=== PATIENT | male | born 1965 | race Caucasian/White ===

== ENCOUNTER → 2017-02-03 11:35 | Outpatient (CLI) | payer SELFPAY | END | disposition home or self-care (01) | LOC: D.CT 11:35 | DX: R60.0 Localized edema (principal); M79.604 Pain in right leg ==

== ENCOUNTER 2018-01-20 15:59 | Inpatient (IN) | payer OTHER ==
[~2018-01-20] VITALS: Ht 180.3 cm; Wt 66.5 kg
[2018-01-20] MEDS ORDERED: LEVOTHYROXINE137 MCG PO (17:20)
[2018-01-20] MEDS ORDERED: VIBRAMYCIN 100100 MG PO (17:21)
[2018-01-20] MEDS ORDERED: ZANTAC150 MG PO (17:21)
[2018-01-20] MEDS ORDERED: TERAZOSIN HCL2 MG PO (17:22)
[2018-01-20] MEDS ORDERED: PLAVIX75 MG PO (17:22)
[2018-01-20 17:45] VITALS: BP 123/95; Ht 180.3 cm; Wt 66.5 kg
[2018-01-20 18:35] LABS: BASOPHILS 0.4 % (0-2); EOSINOPHILS 4.9 % (0-7); HEMATOCRIT 40.3 % (42.0-54.0); HEMOGLOBIN 14.3 g/dL (13.5-17.5); IMMATURE GRANULOCYTES 0.2 % (0-5); LYMPHOCYTES 22.7 % (15-50); MCH 29.7 pg (26.0-34.0); MCHC 35.5 g/dL (31.0-37.0); MCV 83.6 fL (80.0-100.0); MEAN PLATELET VOLUME 9.4 fL (7.4-10.4); MONOCYTES 14.9 % (2-11); NEUTROPHILS 56.9 % (40-80); PLATELET COUNT 143 10x3/uL (130-400); RBC 4.82 10x6/uL (4.20-6.10); RDW 13.1 % (11.5-14.5); WBC 5.3 10x3/uL (4.8-10.8)
[2018-01-20 18:49] LABS: ALBUMIN 3.4 g/dL (3.4-5.0); ANION GAP 13.5 mmol/L (8-16); BILIRUBIN - TOTAL 0.53 mg/dL (0.2-1.3); CALCIUM 8.4 mg/dL (8.5-10.1); CARBON DIOXIDE 25.2 mmol/L (21.0-32.0); CREATININE - SERUM 1.9 mg/dL (0.6-1.3); POTASSIUM - SERUM 3.7 mmol/L (3.5-5.1); PROTEIN - SERUM 7.1 g/dL (6.4-8.2)
[2018-01-20 19:54] VITALS: BP 137/85
[2018-01-21 01:30] VITALS: BP 145/90
[2018-01-21 04:40] VITALS: BP 149/97
[2018-01-21 07:54] VITALS: BP 136/91
[2018-01-21 11:53] VITALS: BP 161/101
[2018-01-21 20:20] VITALS: BP 148/97
[2018-01-22 00:41] VITALS: BP 155/94
[2018-01-22 05:57] VITALS: BP 138/88
[2018-01-22 06:45] LABS: BASOPHILS 0.4 % (0-2); EOSINOPHILS 6.2 % (0-7); HEMOGLOBIN 14.3 g/dL (13.5-17.5); LYMPHOCYTES 21.5 % (15-50); MCH 29.4 pg (26.0-34.0); MCHC 34.9 g/dL (31.0-37.0); MCV 84.2 fL (80.0-100.0); MEAN PLATELET VOLUME 9.8 fL (7.4-10.4); MONOCYTES 10.4 % (2-11); NEUTROPHILS 61.5 % (40-80); PLATELET COUNT 155 10x3/uL (130-400); RBC 4.87 10x6/uL (4.20-6.10); WBC 4.5 10x3/uL (4.8-10.8)
[2018-01-22 06:55] LABS: ANION GAP 13.1 mmol/L (8-16); CALCIUM 8.3 mg/dL (8.5-10.1); CARBON DIOXIDE 25.7 mmol/L (21.0-32.0); CREATININE - SERUM 1.9 mg/dL (0.6-1.3); POTASSIUM - SERUM 3.8 mmol/L (3.5-5.1)
[2018-01-22 08:11] VITALS: BP 148/100
[2018-01-22 11:22] VITALS: BP 178/112
[2018-01-22 15:29] VITALS: BP 146/96
[2018-01-22 21:35] VITALS: BP 142/95
[2018-01-23 00:46] VITALS: BP 161/99
[2018-01-23 05:39] VITALS: BP 150/93
[2018-01-23 06:16] LABS: BASOPHILS 0.4 % (0-2); EOSINOPHILS 5.6 % (0-7); HEMATOCRIT 43.5 % (42.0-54.0); HEMOGLOBIN 15.4 g/dL (13.5-17.5); IMMATURE GRANULOCYTES 0.4 % (0-5); LYMPHOCYTES 25.5 % (15-50); MCH 29.7 pg (26.0-34.0); MCHC 35.4 g/dL (31.0-37.0); MEAN PLATELET VOLUME 9.6 fL (7.4-10.4); MONOCYTES 6.5 % (2-11); NEUTROPHILS 61.6 % (40-80); PLATELET COUNT 183 10x3/uL (130-400); RBC 5.18 10x6/uL (4.20-6.10); WBC 4.6 10x3/uL (4.8-10.8)
[2018-01-23 06:38] LABS: ALBUMIN 3.6 g/dL (3.4-5.0); ANION GAP 13.9 mmol/L (8-16); BILIRUBIN - TOTAL 0.42 mg/dL (0.2-1.3); CALCIUM 8.8 mg/dL (8.5-10.1); CARBON DIOXIDE 25.1 mmol/L (21.0-32.0); CREATININE - SERUM 1.9 mg/dL (0.6-1.3); PROTEIN - SERUM 7.3 g/dL (6.4-8.2)
[2018-01-23 08:51] VITALS: BP 154/99
[2018-01-23 12:13] VITALS: BP 144/93
[2018-01-23] MEDS ORDERED: KEFLEX500 MG PO (14:06)
== END 2018-01-23 16:06 | disposition home or self-care (01) | DRG 603 ==
LOC: D.M2 15:59
PROVIDERS: Emergency Medicine; Family Medicine; Student in an Organized Health Care Education/Training Program
DX: L03.115 Cellulitis of right lower limb (principal); B35.3 Tinea pedis; I25.10 Atherosclerotic heart disease of native coronary artery without angina pectoris; Z87.891 Personal history of nicotine dependence; Z95.1 Presence of aortocoronary bypass graft

== ENCOUNTER 2018-03-01 15:41 | Outpatient (CLI) | payer OTHER ==
[~2018-03-01] VITALS: Ht 180.3 cm; Wt 117.7 kg
--- NOTE | ~2018-03-01 | HP ---
PATIENT: LORNA RECINOS MEDICAL RECORD: [id number] ACCOUNT: [id number] LOCATION:[facility] : 65 ADMISSION DATE: 03/01/18 HISTORY AND PHYSICAL EXAMINATION DIAGNOSES: 1. Unstable angina. 2. Coronary artery disease. 3. Previous myocardial infarction. 4. Hyperlipidemia. 5. Hypertension. HISTORY OF PRESENT ILLNESS: Mr. Recinos has a past history of coronary artery disease, He had myocardial infarctions in the past. He has been treated with [facility]I, he is not sure if he has cardiac stent or not, he is on Plavix. He had 3 episodes of severe chest pain today, just like that of his previous myocardial infarction and previous angina. His EKG is with no changes. He continues to have the episodes of chest pain. PHYSICAL EXAMINATION: GENERAL APPEARANCE: Well-nourished, well-developed, appears stated age. Level of distress, comfortable. PSYCHIATRIC: Mental status, alert, normal affect. Orientation, oriented to time, place and person. EYES: Lids and conjunctiva, noninjected. No discharge, no pallor. ENT: Lips, teeth, gums, normal dentition. Oropharynx, no cyanosis, no pallor. NECK: Carotid arteries, bilateral normal upstroke, no bruits, no thrills. JUGULAR VEINS: No jugular venous pressure or distention. CERVICAL LYMPH NODES: Nontender, nonenlarged. THYROID: Not enlarged. Nontender. No nodules. LUNGS: Respiratory effort, unlabored. CHEST: Normal curvature. No thoracic deformity. No chest wall tenderness. Percussion, resonant. Auscultation, clear. No wheezes, no rales, no rhonchi. CARDIOVASCULAR: Precordial exam, nondisplaced. No heaves or pericardial thrills. Rate and rhythm, regular. Heart sounds, normal S1, normal S2. No S3, no gallop, no rub. Systolic murmur, not heard. Diastolic murmur, not heard. EXTREMITIES: No cyanosis, no edema. Peripheral pulses, full and equal in all extremities, except as noted. No bruits appreciated. ABDOMEN: Soft, nondistended. Normal aorta. No bruit. Nontender. No masses. Liver, nontender, no hepatomegaly. Spleen, nontender, no splenomegaly. MUSCULOSKELETAL: No joint tenderness. No joint swelling. No erythema. NEUROLOGICAL: Normal gait, normal strength, normal tone. SKIN: Warm and dry. OVERALL IMPRESSION: Chest pain compatible with angina in a gentleman with a past history of myocardial infarctions, most likely he has recurrent hemodynamically significant coronary artery disease. We will proceed with coronary angiography. Further care depends upon the findings of the angiography. TRANSINT:[id number] Voice Confirmation ID: [id number] DOCUMENT ID: [id number] HISTORY AND PHYSICAL [id number] CESSORLORNA, JENNIFER CHANEY at 1207 CC: [id number] DICTATION DATE: 03/01/18 171 HORSE RANCHER: 03/01/18 1737 DEP CLI 03/02/18 [place] [address] [place] [address]
--- NOTE | ~2018-03-01 | OP ---
PATIENT NAME: LORNA HOLMAN MEDICAL RECORD: [id number] :65 LOCATION:D.CAT ADMISSION DATE: SURGEON: JENNIFER VICK MD DATE OF OPERATION: 03/02/2018 PROCEDURES: 1. PTCA stent vein graft to RCA. 2. Left heart catheterization. 3. Selective coronary angiography. 4. Vein graft angiography. 5. BUENO angiography. INDICATION: Unstable angina and coronary artery disease. DESCRIPTION OF PROCEDURE: After informed consent was obtained and after detailed explanation of risks, benefits as well as alternative therapies, the patient elected to proceed with angiogram and angioplasty. The right femoral area was prepped and draped in normal sterile fashion. Right femoral artery was cannulated via modified Seldinger technique with placement of 6-German sheath. All catheters exchanged through this sheath. FINDINGS: Left ventriculogram was performed in standard 30-degree GUNTER view, reveals global hypokinesis throughout all segments. Overall ejection fraction 35%. SELECTIVE CORONARY ANGIOGRAPHY: 1. Left main is with no significant angiographic disease. 2. Left anterior descending is closed. 3. Left circumflex is closed. 4. Right coronary artery is closed. 5. BUENO to the LAD is patent. It is quite tortuous and elongated. The LAD does have an 80+ percent stenosis after the BUENO. 6. Vein graft to a LAD diagonal is patent. The diagonal is small, diffusely diseased. 7. Vein graft to the left circumflex is patent. The circumflex has 2 branches after the distal anastomosis. There is at least 80% to 90% stenosis of one of these branches. 8. Vein graft to the right coronary artery is patent. There is an area of 70% to 80% stenosis throughout the entire proximal vein graft. PTCA STENT OF THE VEIN GRAFT TO THE RCA: The stent used was a 4.0 x 38 mm Aleksandar. Result was 0% residual stenosis. OVERALL IMPRESSION: Successful percutaneous transluminal coronary angioplasty stent of the vein graft to the right coronary artery going from 70% to 80% initial stenosis to 0% residual. PLAN: For PTCA stent of the circumflex and/or LAD if he continues to have episodes of chest pain. TRANSINT:[id number] Voice Confirmation ID: [id number] DOCUMENT ID: [id number] OPERATIVE REPORT [id number] LORNA HOLMAN JENNIFER VICK MD at 1207 CC: [id number] DICTATION DATE: 03/02/18 1616 PARKING WORKER: 03/02/18 1637 DEP CLI 03/02/18 [place] [id number] [facility] [place] [address]
--- NOTE | ~2018-03-01 | HEMODYNAMI ---
PATIENT:LORNA HOLMAN MEDICAL RECORD: [id number] : 65 LOCATION:[address] [id number] ADMISSION DATE: 03/01/18 Generatedon:03/02/201816:11 Patient name: LORNA HOLMAN Patient #: [id number] SSN: : 1965 Date of study: 03/02/2018 Page: Of Hemodynamic Procedure Report Patient Data Patient Demographics Procedure consent was obtained First Name: LORNA Gender: Male Last Name: RIVER : 1965 Middle Initial: MEAGAN Age: 53 year(s) Patient #: [id number] Race: Unknown Additional ID: [id number] Contact details [address]: [address] [place] [address] State: [place] City: [place] Zip code: [address] Past Medical History Allergies: No known allergies Admission Admission Data Admission Date: 03/01/2018 Admission Time: 21:11 Admit Source: Other Room #: [facility] Lab Results Lab Result Date: 03/01/2018 Lab Result Time: 16:15 Biochemistry Name Units Result Min Max BUN mg/dl 17 --(---*)-- 7 18 Creatinine mg/dl 2 --(----)-* 0.6 1.3 CBC Name Units Result Min Max Hematocrit % 40.5 -*(----)-- 42 54 Hemoglobin g/dl 14.2 --(*---)-- 13.5 17.5 Procedure Procedure Types Cath Procedure Diagnostic Procedure LHC LH w/Coronaries Sedation Charges Moderate Sedation up to 15 minutes PCI Procedure Coronary Stent Coronary Stent Initial Procedure Description Procedure Date Procedure Date: 03/02/2018 Procedure Start Time: 15:50 Procedure End Time: 16:11 Procedure Staff Name Function Cristofer Melendez MD Performing Physician July Quezada RT Monitor Carrillo James RT Scrub Juan Hernandez RN Nurse Procedure Data Cath Procedure Fluoroscopy Diagnostic fluoroscopy Total fluoroscopy Time: 5.8 time: 5.8 min min Diagnostic fluoroscopy Total fluoroscopy dose: dose: 1240 mGy 1240 mGy Contrast Material Contrast Material Type Amount (ml) Isovue 370 145 Entry Location Entry Primary Successful Side Size Upsize Upsize Entry Closure Succes sful Closure Location (Fr) 1 (Fr) 2 (Fr) Remarks Device Remarks Femoral Right 5 Fr 6 Fr Exoseal artery Short Estimated blood loss: 10 ml Diagnostic catheters Device Type Used For End Catheter Placement MULTIPACK Pigtail 5 Fr LV Angiography catheter MULTIPACK JL 4.0 5Fr Left Coronary catheter Angiography MULTIPACK 3DRC 5Fr Internal mammary catheter arteriography MULTIPACK 3DRC 5Fr Right Coronary catheter Angiography DIAGNOSTIC AR 2 MOD 5 Fr SVG Angiography catheter ([id number]) DIAGNOSTIC AR 2 MOD 5 Fr SVG Angiography catheter ([id number]) DIAGNOSTIC AR 2 MOD 5 Fr SVG Angiography catheter ([id number]) Procedure Complications No complications Procedure Medications Medication Administration Route Dosage 0.9% NaCl I.V. 100 ml/hr Oxygen etCO2 Nasal cannula 2 l/min Heparin Flush Bag added to field 2 bags (1000units/500ml NS) Lidocaine 2% added to field 20 Versed I.V. 2 mg Fentanyl I.V. 100 mcg Versed I.V. 1 mg Versed I.V. 1 mg Heparin Bolus I.V. 4000 units Cardene I.C. 300 mcg Fentanyl I.V. 100 mcg Hemodynamics Rest HGB: 14.2 (g/dl) Heart Rate: 70 (bpm) Snapshots Pre Cath Intra NCS Post Cath Vital Signs Time Heart Resp SPO2 etCO2 NIBP (mmHg) Rhythm Pain Sedation Rate (ipm) (%) (mmHg) Status Level (bpm) 15:38:01 67 14 97 0 176/112(150) NSR 0 (11) 10(A) , No pain 15:42:54 68 14 88 0 165/111(137) NSR 0 (11) 10(A) , No pain 15:47:43 67 12 95 12.7 171/108(145) NSR 0 (11) 10(A) , No pain 15:52:32 68 12 94 35.1 161/108(128) NSR 0 (11) 10(A) , No pain 15:57:21 68 11 95 27.6 168/101(130) NSR 0 (11) 9(A) , No pain 16:02:11 69 15 96 33.6 164/106(139) NSR 0 (11) 9(A) , No pain 16:07:04 76 12 96 30.6 152/100(123) NSR 0 (11) 10(A) , No pain Medications Time Medication Route Dose Verified Delivered Reason Notes Effectiveness by by 15:44:14 0.9% NaCl I.V. 100 Juan Juan Per physician ml/hr David Hernandez RN RN 15:44:24 Oxygen etCO2 2 Juan Juan Per physician Nasal l/min David Hernandez cannula RN RN 15:44:35 Heparin Flush added 2 Juan Juan used for Bag to bags Lorkatheryn Hernandez procedure (1000units/500ml field RN RN NS) 15:44:46 Lidocaine 2% added 20ml Juan Juan for local to vial Lorkatheryn Hernandez anesthetic field RN RN 15:44:58 Versed I.V. 2 mg Juan Juan for sedation David Hernandez RN RN 15:45:07 Fentanyl I.V. 100 Juan Juan for sedation mcg David Hernandez RN RN 15:48:06 Versed I.V. 1 mg Juan Juan for sedation David Hernandez RN RN 15:52:04 Versed I.V. 1 mg Juan Juan for sedation David Hernandez RN RN 16:01:45 Heparin Bolus I.V. 4000 Juan Juan for units Lorigan aDvid anticoagulation RN RN 16:02:04 Cardene I.C. 300 Juan Cristofer for mcg David florian RN 16:09:27 Fentanyl I.V. 100 Juan Cristofer for sedation connie Melendez MD, RN Procedure Log Time Note 14:56:37 Informed consent obtained and on chart 14:57:11 Lab Result : Hemoglobin 14.2 g/dl 14:57:11 Lab Result : Creatinine 2 mg/dl 14:57:11 Lab Result : BUN 17 mg/dl 14:57:11 Lab Result : Hematocrit 40.5 % 14:57:15 Admit Source: Other 14:57:31 Diagnostic Cath status Elective 14:57:32 Time tracking: Regular hours (M-F 7:00 - 5:00) 14:57:36 Plan of Care:Hemodynamics will remain stable., Cardiac rhythm will remain stable., Comfort level will be maintained., Respiratory function will remain adequate., Patient/ family verbilizes understanding of procedure., Procedure tolerated without complication., Recovers from procedure without complications.. 14:57:44 H&P Date Dictated: 03/01/2018 Within 30 days and on chart., H&P Addendum completed by physician on day of procedure. (MUST COMPLETE FOR ALL OUTPATIENTS). 15:23:13 July Counts RT(R) sent for patient. Start room use. 15:30:00 Patient received from Med II to CCL 1 Alert and oriented. Tansferred to table in Supine position. 15:30:01 Warm blankets applied, and tyron hugger turned on for patient comfort. 15:30:02 Correct patient and procedure confirmed by team. 15:30:02 ECG and BP/O2 sat monitors applied to patient. 15:30:04 Pre-procedure instructions explained to patient. 15:30:04 Pre-op teaching completed and patient verbalized understanding. 15:30:07 Family in patients room. 15:30:08 Patient NPO since Midnight. 15:30:15 Patient allergic to No known allergies 15:36:59 Vital chart was started 15:37:02 Rhythm: sinus rhythm 15:37:03 Full Disclosure recording started 15:37:06 Is the patient allergic to Iodine/contrast media? No. 15:37:07 Is patient on blood thinner?Yes 15:37:09 ACC The patient was administered the following blood thiners within the last 24 hours: ACCPlavix 15:37:12 Patient diabetic? No. 15:37:17 Previous problem with sedation/anesthesia? No ? 15:37:18 Snore? Yes 15:37:19 Sleep apnea? Yes 15:37:20 Deviated septum? No 15:37:21 Opens mouth fully? Yes 15:37:21 Sticks out tongue? Yes 15:37:27 Airway obstruction? No ? 15:37:28 Dentures? No ? 15:37:31 Pre procedure: right dorsailis pedis pulse 2+ Normal; easily identifiable; not easily obliterated 15:37:32 Patient pain scale 0/10 ?. 15:37:39 IV patent on arrival in right antecubital with 0.9% NaCl at O. 15:37:42 Lab results completed and on chart. 15:37:45 Right groin area was prepped with chlora-prep and draped in sterile fashion 15:37:46 Alarms reviewed by R. N. 15:37:46 Sharps counted by scrub and verified by R.N. 15:41:42 Baseline sample Acquired. 15:43:43 Final Timeout: patient, procedure, and site verified with staff and physician. All members of the team are in agreement. 15:43:45 Right groin site verified by team. 15:43:47 Physical assessment completed. ASA score P 2 - A patient with mild systemic disease as per Cristofer Melendez MD. 15:43:49 Sedation plan: IV Moderate Sedation Medication:Versed, Fentanyl 15:44:14 0.9% NaCl 100 ml/hr I.V. was administered by Juan Hernandez RN; Per physician; 15:44:24 Oxygen 2 l/min etCO2 Nasal cannula was administered by Juan Hernandez RN; Per physician; 15:44:35 Heparin Flush Bag (1000units/500ml NS) 2 bags added to field was administered by Juan Hernandez RN; used for procedure; 15:44:46 Lidocaine 2% 20ml vial added to field was administered by Juan Hernandez RN; for local anesthetic; 15:44:58 Versed 2 mg I.V. was administered by Juan Hernandez RN; for sedation; 15:45:07 Fentanyl 100 mcg I.V. was administered by Juan Hernandez RN; for sedation; 15:47:38 Zero performed for pressure channel P1 15:48:06 Versed 1 mg I.V. was administered by Juan Hernandez RN; for sedation; 15:50:40 Use device set Femoral Dx 15:50:41 ACIST Syringe (28182) opened to sterile field. 15:50:42 Bag Decanter () opened to sterile field. 15:50:43 Medline Cath Pack ([id number]) opened to sterile field. 15:50:44 DIAGNOSTIC WIRE .035 260cm J wire (135280) opened to sterile field. 15:50:46 ACIST Hand Control (55340) opened to sterile field. 15:50:47 ACIST Manifold (33188) opened to sterile field. 15:50:47 DIAGNOSTIC Multipack 5Fr catheter set (OF9339) opened to sterile field. 15:50:48 Tegaderm 4 x 4 (1626W) opened to sterile field. 15:50:49 PERCUTANEOUS ENTRY 19GA needle opened to sterile field. 15:50:50 SHEATH Prelude 5Fr 0.035 (KMP-2I-60-035) opened to sterile field. 15:50:53 Procedure started. 15:50:57 Local anesthetic to right femoral artery with Lidocaine 2% by Cristofer Melendez MD.INITIAL ACCESS ONLY 15:51:28 A 5 Fr sheath was inserted into the Right Femoral artery 15:52:04 Versed 1 mg I.V. was administered by Juan Hernandez RN; for sedation; 15:52:20 A MULTIPACK Pigtail 5 Fr catheter was advanced over the wire and used for LV Angiography. 15:52:22 LV gram done using GUNTER 15:52:35 EF : 35 % 15:52:48 Injector settings: Ml/sec: 10, Volume: 20, 15:52:49 Catheter removed. 15:52:55 A MULTIPACK JL 4.0 5Fr catheter was advanced over the wire and used for Left Coronary Angiography. 15:54:20 Catheter removed. 15:54:35 A MULTIPACK 3DRC 5Fr catheter was advanced over the wire and used for Internal mammary arteriography. to LAD 15:56:16 A MULTIPACK 3DRC 5Fr catheter was advanced over the wire and used for Right Coronary Angiography. 15:57:04 A DIAGNOSTIC AR 2 MOD 5 Fr catheter ([id number]) was advanced over the wire and used for SVG Angiography. to Diag 15:57:25 A DIAGNOSTIC AR 2 MOD 5 Fr catheter ([id number]) was advanced over the wire and used for SVG Angiography. to RCA 15:57:31 Catheter removed. 15:57:37 Use device set [facility] PCI 15:57:40 SHEATH Prelude 6Fr 0.035 (TPM-9I-47-035) opened to sterile field. 15:57:43 INFLATOR Merit BasixCompak (UQ0548) opened to sterile field. 15:57:45 CHOICE PT Extra Support 182cm wire ([id number]) opened to sterile field. 15:58:06 GUIDE 6FR AR 2.0 SH catheter ([id number]) opened to sterile field. 15:58:43 A DIAGNOSTIC AR 2 MOD 5 Fr catheter (380753M) was advanced over the wire and used for SVG Angiography. to Circ 15:58:54 Catheter removed. 15:59:28 Sheath upsized to a 6 Fr Short. 16:01:43 6 Fr AR 2.0 SH guide catheter was inserted over the wire 16:01:45 Heparin Bolus 4000 units I.V. was administered by Juan Hernandez RN; for anticoagulation; 16:02:04 Cardene 300 mcg I.C. was administered by Cristofer Melendez MD; for vasodilation; 16:02:04 CHOICE PT ES wire advanced. 16:04:09 Place stent Inflation Number: 1 A KANE Rx 4.0 x 38 stent ([id number]) was prepped and advanced across the Aorta Right -> Dist RCA. The stent was deployed at 13 SUYAPA for 0:08 (min:sec). 16:05:03 Inflation number: 2 The stent balloon was then re-inflated across the Aorta Right -> Dist RCA to 15 SUYAPA for 0:05 (min:sec). 16:05:49 Stent catheter was removed intact over wire. 16:05:50 Wire removed. 16:05:50 Guide catheter removed. 16:06:07 Sheath removed intact; hemostasis achieved with Exoseal to the Right Femoral artery. 16:06:09 Procedure ended.(Physican Out) 16:06:18 Fluoroscopy time 05.80 minutes. 16:06:22 Flurop Dose total: 1240 16:06:22 Fluoroscopy dose: 1240 mGy 16:06:27 Contrast amount:Isovue 370 145ml. 16:06:28 Sharps counted by scrub and verified by R.N. 16:06:31 Insertion/operative site no bleeding no hematoma. 16:06:34 Post-op/insertion site Right Femoral artery dressed using a 4 x 4 and Tegaderm. 16:06:37 Post right femoral artery:stable, clean and dry 16:06:39 Post Procedure Pulses reassessed and unchanged 16:06:41 Post-procedure physical assessment completed. ASA score P 2 - A patient with mild systemic disease as per Cristofer Melendez MD. 16:06:47 Post procedure rhythm: unchanged. 16:06:49 Estimated blood loss: 10 ml 16:07:08 Post procedure instruction explained to patient.Patient verbalizes understanding. 16:07:09 Patient needs reinforcement of post procedure teaching. 16:07:55 Procedure type changed to Cath procedure, Diagnostic procedure, LHC, LHC w/Coronaries, Sedation Charges, Moderate Sedation up to 15 minutes, PCI procedure, Coronary Stent, Coronary Stent Initial 16:08:20 Procedure Complication : No complications 16:08:21 See physician's report for complete and final results. 16:08:46 EXOSEAL 6Fr (EX600) opened to sterile field. 16:09:27 Fentanyl 100 mcg I.V. was administered by Cristofer Melendez MD; for sedation; 16:11:26 Procedure and supply charges have been captured, reviewed, submitted and are correct. 16:11: Vital chart was stopped 16::33 Report given to PCU. 16:11:36 Patient transfered to PCU with Bed. 16::44 Procedure ended. 16::44 Full Disclosure recording stopped 16::46 End room use (Document Last) Intervention Summary Intervention Notes Time ActionType Lesion and Equipment Used Action# Pressure Duration Attributes 16:04:09 Place stent Aorta Right KANE Rx 4.0 x 1 13 00:08 -> Dist RCA 38 stent ([id number]) 16:05:03 Reinflate Aorta Right KANE Rx 4.0 x 2 15 00:05 stent -> Dist RCA 38 stent balloon ([id number]) Device Usage Item Name Manufacture Quantity Catalog Number Hospital Part Current Minimal Lot# / Charge Number Stock Stock Serial# Code ACIST Syringe Acist 1 80628 276828 538772 [id number] 20 (81564) [employer] Bag Decanter Microtek 1 2001S 130019 34713 446109 5 () Medical Inc. Medline Cath Cardinal 1 [id number] 051139 14765 518354 5 Pack Health ([id number]) DIAGNOSTIC WIRE St Renny 1 128258 877152 530855 960154 30 .035 260cm J wire (518190) ACIST Hand Acist 1 47716 898785 731024 981336 5 Control (65158) Medical Systems Inc ACIST Manifold Acist 1 50621 220304 411558 677695 5 (33534) [employer] Inc DIAGNOSTIC Cardinal 1 [id number] 786605 23773 847618 30 Multipack 5Fr Health catheter set ([id number]) Tegaderm 4 x 4 3M 1 1626W 189689 218645 280049 5 (1626W) PERCUTANEOUS Cook Medical 1 R33247 564531 323519 5 ENTRY 19GA needle SHEATH Prelude Merit 1 YGA-0Z-29-035 397719 673769 034110 5 5Fr 0.035 Medical (WZD-1M-53-035) MULTIPACK Cardinal 1 444075 5 Pigtail 5 Fr Health catheter MULTIPACK JL Cardinal 1 315707 5 4.0 5Fr Health catheter MULTIPACK 3DRC Cardinal 1 175020 5 5Fr catheter Health DIAGNOSTIC AR 2 Cardinal 1 [id number] 848823 983599 746446 20 MOD 5 Fr Health catheter ([id number]) SHEATH Prelude Merit 1 GMR-7H-12-35 618840 2260404 430563 5 6Fr 0.035 Medical (SNV-3I-83-035) INFLATOR Merit Merit 1 TE3351 719976 929014 682334 15 [employer] Medical (QS1033) CHOICE PT Extra [place] 1 [id number] 915156 970180 512096 5 Support 182cm Scientific wire (0602448N1) GUIDE 6FR AR Medtronic 1 [id number] 750544 63437 588001 1 2.0 SH catheter ([id number]) KANE Rx 4.0 x Medtronic 1 [id number] 720785 3141937 933846 5 [id number] 38 stent ([id number]) EXOSEAL 6Fr Cardinal 1 EX600 308159 075241 043211 10 (EX600) Health Signature Audit [place] Stage Time Signature Unsigned Intra-Procedure 03/02/2018 July 4:11:55 PM Counts RT(R) Signatures Monitor : July Signature : Counts RT Date : Time : [place] [id number] [facility] [place] [address]
--- NOTE | ~2018-03-01 | DS ---
PATIENT:LORNA HOLMAN :65 MEDICAL RECORD: [id number] DISCHARGE SUMMARY ADMISSION DATE: 03/01/18 DISCHARGE DATE: 03/02/18 DATE OF DISCHARGE: 03/02/2018. DIAGNOSES: 1. Unstable angina. 2. Coronary artery disease. 3. Percutaneous transluminal coronary angioplasty stent vein graft to RCA this admission. HISTORY: This is a gentleman who presents with unstable anginal symptomatology, past history of coronary artery bypass graft surgery, had significant disease of the vein graft to the RCA, underwent successful CERTIFIED HAND THERAPIST stent of this, was discharged home with the addition of aspirin and Plavix to his medical regimen. Follow up with [facility] in 1 month. TRANSINT:[id number] Voice Confirmation ID: [id number] DOCUMENT ID: [id number] JENNIFER VICK MD at 1207 CC: [id number] DICTATION DATE: 03/02/18 161 METROLOGY SPECIALIST: 03/02/18 1622 DEP CLI 03/02/18 [place] [address] [place] [address]
[~2018-03-01 15:41] MED LIST: KEFLEX500 MG PO; LEVOTHYROXINE137 MCG PO; PLAVIX75 MG PO; TERAZOSIN HCL2 MG PO; VIBRAMYCIN 100100 MG PO; ZANTAC150 MG PO
[2018-03-01] MEDS ORDERED: LIPITOR40 MG PO (15:54)
[2018-03-01 16:30] VITALS: BP 160/98
[2018-03-01 16:36] LABS: BASOPHILS 0.4 % (0-2); EOSINOPHILS 6.2 % (0-7); HEMATOCRIT 40.5 % (42.0-54.0); HEMOGLOBIN 14.2 g/dL (13.5-17.5); IMMATURE GRANULOCYTES 0.2 % (0-5); LYMPHOCYTES 25.6 % (15-50); MCH 29.6 pg (26.0-34.0); MCHC 35.1 g/dL (31.0-37.0); MCV 84.4 fL (80.0-100.0); MEAN PLATELET VOLUME 9.8 fL (7.4-10.4); MONOCYTES 9.4 % (2-11); NEUTROPHILS 58.2 % (40-80); RDW 13.4 % (11.5-14.5); WBC 4.8 10x3/uL (4.8-10.8)
[2018-03-01 16:45] VITALS: BP 143/85
[2018-03-01 16:49] LABS: PLATELET COUNT 133 10x3/uL (130-400)
[2018-03-01 16:50] LABS: APTT 25.4 SECONDS (22.8-39.4); INR 1.15 (0.85-1.17); PROTIME 14.2 SECONDS (11.6-15.0)
[2018-03-01 16:51] LABS: D-DIMER-QUANTITATIVE < 0.27 ug/mLFEU (0.20-0.54)
[2018-03-01 16:56] LABS: ALBUMIN 3.9 g/dL (3.4-5.0); ALKALINE PHOSPHATASE 151 U/L (46-116); ALT (SGPT) 47 U/L (10-68); BILIRUBIN - TOTAL 0.59 mg/dL (0.2-1.3); CALC OSMOLALITY 279 mosm/kg (275-300); CALCIUM 8.4 mg/dL (8.5-10.1); CARBON DIOXIDE 25.7 mmol/L (21.0-32.0); CHLORIDE - SERUM 106 mmol/L (98-107); GLUCOSE 87 mg/dL (74-106); POTASSIUM - SERUM 3.4 mmol/L (3.5-5.1); SODIUM 140 mmol/L (136-145); UREA NITROGEN 17 mg/dL (7-18); eGFR NON AFRICAN AMERICAN 37 mL/min (90-120)
[2018-03-01 17:08] LABS: CKMB 2.7 U/L (0.0-3.6); CREATINE KINASE 225 UL (21-232); MAGNESIUM - SERUM 2.2 mg/dL (1.8-2.4); TROPONIN-I 0.046 ng/mL (0.000-0.060)
[2018-03-01 17:15] VITALS: BP 150/94
[2018-03-01 18:15] VITALS: BP 148/89
[2018-03-01 19:30] VITALS: BP 151/95
[2018-03-02] VITALS (7 sets, daily range): BP systolic 136–161; BP diastolic 80–101; Ht 180.3 cm; Wt 117.7 kg
== END 2018-03-02 21:20 | disposition home or self-care (01) ==
LOC: OBSVTIME → D.CATH 15:41 → D.ER 15:41 → D.M2 21:11 → D.ER 21:11 → OBSVTIME 21:13 → D.CATH 03-02 21:20 → D.M2 03-02 21:20
PROVIDERS: Family Medicine
DX: I25.110 Atherosclerotic heart disease of native coronary artery with unstable angina pectoris (principal); I25.710 Atherosclerosis of autologous vein coronary artery bypass graft(s) with unstable angina pectoris; Z01.812 Encounter for preprocedural laboratory examination; I25.2 Old myocardial infarction; I10 Essential (primary) hypertension; E78.5 Hyperlipidemia, unspecified

== ENCOUNTER 2018-03-06 01:57 | Outpatient (CLI) | payer OTHER ==
[~2018-03-06] VITALS: Ht 180.3 cm; Wt 112.0 kg
[2018-03-06] VITALS (7 sets, daily range): BP systolic 120–163; BP diastolic 71–109; Ht 180.3 cm; Wt 112.0 kg
--- NOTE | ~2018-03-06 | HP ---
PATIENT: LORNA RECINOS MEDICAL RECORD: [id number] ACCOUNT: [id number] LOCATION:[facility].2140 : 65 ADMISSION DATE: 03/06/18 HISTORY AND PHYSICAL EXAMINATION DIAGNOSES: 1. Unstable angina. 2. Coronary artery disease. 3. Recent percutaneous transluminal coronary angioplasty stent vein graft to RCA with concomitant disease of circumflex after the vein graft. 4. Hyperlipidemia. 5. Hypertension. HISTORY OF PRESENT ILLNESS: Mr. Recinos presents with unstable anginal symptomatology. He had presented last week with similar. He had a vein graft to the RCA, then underwent intervention. He does have significant disease of the circumflex after the patent vein graft. We will now proceed with percutaneous transluminal coronary angioplasty stent of that. REVIEW OF SYSTEMS: The patient reports easy bruising but reports no swollen glands. The patient reports no fever, no night sweats, no significant weight gain, no significant weight loss. No significant exercise tolerance. The patient reports no dry eyes, no irritation, no vision change. Patient reports no difficulty hearing and no ear pain. Patient reports no frequent nose bleeds or nose and sinus problems. Patient reports on arm pain on exertion. No shortness of breath while lying down. No history of heart murmur. Patient reports no cough, no wheezing or coughing up blood. Patient reports no abdominal pain, no vomiting. Normal appetite. No diarrhea and not vomiting blood. No nausea and no constipation. Patient reports no incontinence. No difficulty urinating. No hematuria. No increased frequency. Patient reports no muscle aches. No weakness, no arthralgias, no back pain. No swelling of the extremities. Patient reports no abnormal mole, no jaundice, no rashes. Reports no loss of consciousness. No weakness and no numbness. No seizures, dizziness, or headaches. The patient reports no depression, no sleep disturbance, feeling safe in a relationship and no alcohol abuse. Patient reports on fatigue. Reports no runny nose or sinus pressure. No itching, no hives, and no frequent sneezing. PHYSICAL EXAMINATION: GENERAL APPEARANCE: Well-nourished, well-developed, appears stated age. Level of distress, comfortable. PSYCHIATRIC: Mental status, alert, normal affect. Orientation, oriented to time, place and person. EYES: Lids and conjunctiva, noninjected. No discharge, no pallor. ENT: Lips, teeth, gums, normal dentition. Oropharynx, no cyanosis, no pallor. NECK: Carotid arteries, bilateral normal upstroke, no bruits, no thrills. JUGULAR VEINS: No jugular venous pressure or distention. CERVICAL LYMPH NODES: Nontender, nonenlarged. THYROID: Not enlarged. Nontender. No nodules. LUNGS: Respiratory effort, unlabored. CHEST: Normal curvature. No thoracic deformity. No chest wall tenderness. Percussion, resonant. Auscultation, clear. No wheezes, no rales, no rhonchi. CARDIOVASCULAR: Precordial exam, nondisplaced. No heaves or pericardial thrills. Rate and rhythm, regular. Heart sounds, normal S1, normal S2. No S3, no gallop, no rub. Systolic murmur, not heard. Diastolic murmur, not heard. HISTORY AND PHYSICAL [id number] LORNA RECINOS EXTREMITIES: No cyanosis, no edema. Peripheral pulses, full and equal in all extremities, except as noted. No bruits appreciated. ABDOMEN: Soft, nondistended. Normal aorta. No bruit. Nontender. No masses. Liver, nontender, no hepatomegaly. Spleen, nontender, no splenomegaly. MUSCULOSKELETAL: No joint tenderness. No joint swelling. No erythema. NEUROLOGICAL: Normal gait, normal strength, normal tone. SKIN: Warm and dry. OVERALL IMPRESSION: Anginal symptomatology with significant disease of circumflex. We will proceed with transcatheter revascularization of the circumflex. TRANSINT:[id number] Voice Confirmation ID: [id number] DOCUMENT ID: [id number] JENNIFER VICK MD at 1156 CC: [id number] DICTATION DATE: 03/06/18 0904 CUE SELECTOR: 03/06/18 1113 ADM IN [facility] [address] [place] [address]
--- NOTE | ~2018-03-06 | DS ---
PATIENT:LORNA RECINOS :65 MEDICAL RECORD: [id number] DISCHARGE SUMMARY ADMISSION DATE: 03/06/18 DISCHARGE DATE: 03/06/18 DISCHARGE DIAGNOSES: 1. Unstable angina. 2. Percutaneous transluminal coronary angioplasty and stent of left circumflex this admission. 3. Hypertension. 4. Hyperlipidemia. HISTORY: Ms. Recinos presents with unstable anginal symptomatology, found to have significant disease of the left circumflex after the vein graft, underwent successful PTCA and stent of this territory, was discharged home with no change in his medications as he is already on aspirin and Plavix. Will follow up with [facility] in 1 month. TRANSINT:[id number] Voice Confirmation ID: [id number] DOCUMENT ID: [id number] JENNIFER VICK MD at 1741 CC: [id number] DICTATION DATE: 03/06/18 1154 ELECTRO WINNING OPERATOR: 03/06/18 2353 DEP CLI 03/06/18 [place] [id number] [place] [address]
--- NOTE | ~2018-03-06 | OP ---
PATIENT NAME: LORNA HOLMAN MEDICAL RECORD: [id number] :65 LOCATION:D.CAT ADMISSION DATE: SURGEON: JENNIFER VICK MD DATE OF OPERATION: 03/06/2018 DATE OF SERVICE: 03/06/2018 PROCEDURES: 1. PTCA stent of left circumflex through the saphenous vein graft. 2. Selective coronary and vein graft angiography. INDICATION: Unstable angina. PROCEDURE IN DETAIL: After informed consent was obtained, after detailed description of the risks, benefits as well as alternative therapies, the patient elected to proceed with angiogram and angioplasty. The right femoral area was prepped and draped in normal sterile fashion. Right femoral artery was cannulated via modified Seldinger technique with placement of 6-Korean sheath. All catheters exchanged through this sheath. FINDINGS: The vein graft to the circumflex is open; however, the circumflex itself is closed since last catheterization. We are able to traverse this with a Choice PT extra support wire ballooning this with a 1.5 balloon and stent with a 2.0 x 22 mm Aleksandar. Result was 0% residual stenosis. OVERALL IMPRESSION: Successful percutaneous transluminal angioplasty stent of the left circumflex through the vein graft going from 100% initial stenosis to 0% residual. TRANSINT:[id number] Voice Confirmation ID: [id number] DOCUMENT ID: [id number] JENNIFER VICK MD at 1741 CC: [id number] DICTATION DATE: 03/06/18 1156 SEASONAL PACKAGE HANDLER: 03/06/18 1241 DEP CLI 03/06/18 [place] [id number]
--- NOTE | ~2018-03-06 | HEMODYNAMI ---
PATIENT:LORNA HOLMAN MEDICAL RECORD: [id number] : 65 LOCATION:[facility] D.[address] [id number] ADMISSION DATE: 03/06/18 Generatedon:03/06/201811:56 Patient name: LORNA HOLMAN Patient #: [id number] SSN: : 1965 Date of study: 03/06/2018 Page: Of Hemodynamic Procedure Report Patient Data Patient Demographics Procedure consent was obtained First Name: LORNA Gender: Male Last Name: RIVER : 1965 Middle Initial: MEAGAN Age: 53 year(s) Patient #: [id number] Race: Unknown Additional ID: [id number] Contact details [address]: [address] [place] [address] State: [place] City: [place] Zip code: [address] Past Medical History Allergies: No known allergies Admission Admission Data Admission Date: 03/06/2018 Admission Time: 3:24 Room #: D.2140 Lab Results Lab Result Date: 03/01/2018 Lab Result Time: 16:15 Biochemistry Name Units Result Min Max BUN mg/dl 17 --(---*)-- 7 18 Creatinine mg/dl 2 --(----)-* 0.6 1.3 CBC Name Units Result Min Max Hematocrit % 40.5 -*(----)-- 42 54 Hemoglobin g/dl 14.2 --(*---)-- 13.5 17.5 Procedure Procedure Types Cath Procedure PCI Procedure AMI/SVG/SPECIAL EDUCATION INCLUSION TEACHER PTCA or Stent SVG-BMS/JB Initial Procedure Description Procedure Date Procedure Date: 03/06/2018 Procedure Start Time: 11:39 Procedure End Time: 11:56 Procedure Staff Name Function Cristofer Melendez MD Performing Physician July Quezada RT Monitor Salvador Oliva RN Nurse Winston Rodgers RT Scrub Procedure Data Cath Procedure Fluoroscopy Diagnostic fluoroscopy Total fluoroscopy Time: 6.6 time: 6.6 min min Diagnostic fluoroscopy Total fluoroscopy dose: dose: 1363 mGy 1363 mGy Contrast Material Contrast Material Type Amount (ml) Isovue 370 158 Entry Location Entry Primary Successful Side Size Upsize Upsize Entry Closure Succes sful Closure Location (Fr) 1 (Fr) 2 (Fr) Remarks Device Remarks Femoral Right 6 Fr Exoseal artery Short Estimated blood loss: 10 ml Procedure Complications No complications Procedure Medications Medication Administration Route Dosage Oxygen NC 2 l/min Lidocaine 2% added to field 20 Heparin Flush Bag added to field 2 bags (1000units/500ml NS) 0.9% NaCl I.V. 100 ml/hr Versed I.V. 2 mg Fentanyl I.V. 100 mcg Heparin Bolus I.V. 4000 units Versed I.V. 1 mg Fentanyl I.V. 50 mcg Integrilin (Bolus I.V. 10.2 ml 2mg/ml) Versed I.V. 1 mg Fentanyl I.V. 50 mcg Integrilin (Bolus I.V. 10.2 ml 2mg/ml) Hemodynamics Rest HGB: 14.2 (g/dl) Heart Rate: 53 (bpm) Snapshots Pre Cath Intra NCS Post Cath Vital Signs Time Heart Resp SPO2 etCO2 NIBP (mmHg) Rhythm Pain Sedation Rate (ipm) (%) (mmHg) Status Level (bpm) 11:27:26 54 22 100 0 160/79(130) NSR 0 (11) 10(A) , No pain 11:32:17 53 18 99 0 138/94(114) NSR 0 (11) 10(A) , No pain 11:37:06 55 18 99 0 132/90(110) NSR 0 (11) 9(A) , No pain 11:41:50 65 15 98 0 127/100(115) NSR 0 (11) 9(A) , No pain 11:46:33 66 16 97 0 120/97(112) NSR 0 (11) 9(A) , No pain 11:51:18 65 17 98 0 123/83(109) NSR 0 (11) 9(A) , No pain 11:56:04 64 16 99 0 125/85(110) NSR 0 (11) 10(A) , No pain Medications Time Medication Route Dose Verified Delivered Reason Notes Effectiveness by by 11:30:47 Oxygen NC 2 Cristofer Franco used for l/min Nora Oliva nutritional chemist 11:30:53 Lidocaine 2% added 20ml Cristoferabram [place] for local to vial Nora Melendez MD anesthetic field 11:30:59 Heparin Flush added 2 Cristofer Cristofer used for Bag to bags Nora Melendez MD procedure (1000units/500ml field NS) 11:31:07 0.9% NaCl I.V. 100 Cristofer Buffie Per physician ml/hr Nora Oliva RN 11:39:07 Versed I.V. 2 mg Cristofer Buffie for sedation Nora Oliva RN 11:39:12 Fentanyl I.V. 100 Cristofer Buffie for sedation mcg Nora Oliva RN 11:41:46 Heparin Bolus I.V. 4000 Cristofer Buffie for verifi ed units Nora Oliva RN anticoagulation with dr melendez 11:44:40 Versed I.V. 1 mg Cristofer Buffie for sedation Nora Oliva RN 11:44:44 Fentanyl I.V. 50 Cristofer Buffie for sedation mcg Nora Oliva RN 11:45:18 Integrilin I.V. 10.2 Cristofer Buffie for wasted (Bolus 2mg/ml) ml Nora Oliva RN antiplatelet 9.8 ml therapy of vial 11:49:08 Versed I.V. 1 mg Cristofer Buffie for sedation Nora Oliva RN 11:49:11 Fentanyl I.V. 50 Cristofer Buffie for sedation mcg Nora Oliva RN 11:54:15 Integrilin I.V. 10.2 Cristofer Buffie for wasted (Bolus 2mg/ml) ml Nora Oliva RN antiplatelet 9.8 ml therapy of vial Procedure Log Time Note 11:14:19 Salvador Oliva RN sent for patient. Start room use. 11:14:21 Time tracking: Call back (After hours or weekends) 11:14:25 Plan of Care:Hemodynamics will remain stable., Cardiac rhythm will remain stable., Comfort level will be maintained., Respiratory function will remain adequate., Patient/ family verbilizes understanding of procedure., Procedure tolerated without complication., Recovers from procedure without complications.. 11:18:17 Patient received from PCU to CCL 1 Alert and oriented. Tansferred to table in Supine position. 11:18:17 Warm blankets applied, and tyron hugger turned on for patient comfort. 11:18:18 Correct patient and procedure confirmed by team. 11:18:19 Signed procedure consent form obtained from patient. 11:18:19 ECG and BP/O2 sat monitors applied to patient. 11:18:20 Full Disclosure recording started 11:26:11 Vital chart was started 11:30:09 Baseline sample Acquired. 11:30:11 Rhythm: sinus rhythm 11:30:47 Oxygen 2 l/min NC was administered by Salvador Oliva RN; used for procedure; 11:30:53 Lidocaine 2% 20ml vial added to field was administered by Cristofer Melendez MD; for local anesthetic; 11:30:59 Heparin Flush Bag (1000units/500ml NS) 2 bags added to field was administered by Cristofer Melendez MD; used for procedure; 11:31:07 0.9% NaCl 100 ml/hr I.V. was administered by Salvador Oliva RN; Per physician; 11:31:09 H&P Date Dictated: 03/06/2018 Within 30 days and on chart.. 11:31:11 Pre-procedure instructions explained to patient. 11:31:11 Pre-op teaching completed and patient verbalized understanding. 11:31:12 Family in waiting room. 11:31:14 Patient NPO since Midnight. 11:31:22 Is the patient allergic to Iodine/contrast media? Yes. 11:31:23 Is patient on blood thinner?Yes 11:31:25 ACC The patient was administered the following blood thiners within the last 24 hours: ACCPlavix 11:31:27 Patient diabetic? No. 11:32:06 Previous problem with sedation/anesthesia? No ? 11:32:08 Snore? Yes 11:32:09 Sleep apnea? Yes 11:32:11 Deviated septum? No 11:32:14 Opens mouth fully? Yes 11:32:15 Sticks out tongue? Yes 11:32:22 Airway obstruction? No ? 11:32:27 Dentures? No ? 11:32:32 Pre procedure: right dorsailis pedis pulse 2+ Normal; easily identifiable; not easily obliterated 11:32:36 Patient pain scale 0/10 ?. 11:32:57 IV RT WRIST INFILTRATED 11:33:08 IV started by Salvador Oliva RN inleft forearm with a 22 gauge IV catheter with 0.9% NaCl at O. 11:33:14 IV CATHETER 20g opened to sterile field. 11:33:28 Lab results completed and on chart. 11:33:32 Right groin area was prepped with chlora-prep and draped in sterile fashion 11:33:32 Alarms reviewed by R. N. 11:33:33 Sharps counted by scrub and verified by R.N. 11:33:38 Use device set CATH PACK 11:33:41 Use device set TAUTH PCI 11:33:42 ACIST Syringe (78152) opened to sterile field. 11:33:43 ACIST Hand Control (48778) opened to sterile field. 11:33:43 ACIST Manifold (26809) opened to sterile field. 11:33:44 Medline Cath Pack ([id number]) opened to sterile field. 11:33:44 Bag Decanter (2002) opened to sterile field. 11:33:45 DIAGNOSTIC WIRE .035 260cm J wire (484544) opened to sterile field. 11:34:02 CHOICE PT Extra Support 182cm wire ([id number]) opened to sterile field. 11:34:04 INFLATOR Merit BasixCompak (GJ6482) opened to sterile field. 11:34:06 SHEATH Prelude 6Fr 0.035 (GVI-6I-51-035) opened to sterile field. 11:37:01 Physician paged 11:38:42 Final Timeout: patient, procedure, and site verified with staff and physician. All members of the team are in agreement. 11:38:44 Right groin site verified by team. 11:38:47 Physical assessment completed. ASA score P 2 - A patient with mild systemic disease as per Cristofer Melendez MD. 11:38:49 Sedation plan: IV Moderate Sedation Medication:Versed, Fentanyl 11:39:07 Versed 2 mg I.V. was administered by Salvador Oliva RN; for sedation; 11:39:12 Fentanyl 100 mcg I.V. was administered by Salvador Oliva RN; for sedation; 11:39:38 Zero performed for pressure channel P1 11:39:43 Zero performed for pressure channel P1 11:39:51 Procedure started. 11:39:53 Local anesthetic to right femoral artery with Lidocaine 2% by Cristofer Melendez MD.INITIAL ACCESS ONLY 11:40:02 A 6 Fr Short sheath was inserted into the Right Femoral artery 11:40:46 6 Fr AR 2.0 guide catheter was inserted over the wire 11:41:43 CHOICE PT ES wire advanced. 11:41:46 Heparin Bolus 4000 units I.V. was administered by Salvador Oliva RN; for anticoagulation; verified with dr melendez 11:42:21 CHOICE PT Extra Support J 300cm guide wire ([id number]) opened to sterile field. 11:42:37 Wire removed. 11:42:48 LONG CHOICE PT ES wire advanced. 11:44:40 Versed 1 mg I.V. was administered by Salvador Oliva RN; for sedation; 11:44:44 Fentanyl 50 mcg I.V. was administered by Salvador Oliva RN; for sedation; 11:45:18 Integrilin (Bolus 2mg/ml) 10.2 ml I.V. was administered by Salvador Oliva RN; for antiplatelet therapy; wasted 9.8 ml of vial 11:45:40 Inflate balloon Inflation number: 1 A EMERGE OTW 1.5 x 20 balloon ([id number]) was prepped and advanced across the Aorta Left -> Mid CX, then inflated to 21 SUYAPA for 0:06 (min:sec). 11:47:05 Inflation number: 2 The EMERGE OTW 1.5 x 20 balloon ([id number]) was reinflated across the Aorta Left -> Mid CX, to 21 SUYAPA for 0:05 (min:sec). 11:47:32 Balloon removed over the wire. 11:49:08 Versed 1 mg I.V. was administered by Salvador Oliva RN; for sedation; 11:49:11 Fentanyl 50 mcg I.V. was administered by Salvador Oliva RN; for sedation; 11:50:36 Place stent Inflation Number: 3 A KANE RX 2.0 x 22 stent ([id number]) was prepped and advanced across the Aorta Left -> Mid CX. The stent was deployed at 13 SUYAPA for 0:03 (min:sec). 11:51:04 Stent catheter was removed intact over wire. 11:51:05 Wire removed. 11:51:05 Guide catheter removed. 11:51:17 Sheath removed intact; hemostasis achieved with Exoseal to the Right Femoral artery. 11:51:19 Procedure ended.(Physican Out) 11:51:31 Fluoroscopy time 06.60 minutes. 11:51:35 Flurop Dose total: 1363 11:51:35 Fluoroscopy dose: 1363 mGy 11:51:45 Contrast amount:Isovue 370 158ml. 11:51:46 Sharps counted by scrub and verified by R.N. 11:51:50 Insertion/operative site no bleeding no hematoma. 11:51:53 Post-op/insertion site Right Femoral artery dressed using a 4 x 4 and Tegaderm. 11:51:56 Post right femoral artery:stable, clean and dry 11:52:06 Post Procedure Pulses reassessed and unchanged 11:52:14 Post-procedure physical assessment completed. ASA score P 2 - A patient with mild systemic disease as per Cristofer Melendez MD. 11:52:17 Post procedure rhythm: unchanged. 11:52:21 Estimated blood loss: 10 ml 11:52:23 Post procedure instruction explained to patient.Patient verbalizes understanding. 11:52:24 Patient needs reinforcement of post procedure teaching. 11:52:56 Procedure Complication : No complications 11:52:58 See physician's report for complete and final results. 11:53:03 EXOSEAL 6Fr (EX600) opened to sterile field. 11:54:15 Integrilin (Bolus 2mg/ml) 10.2 ml I.V. was administered by Salvador Oliva RN; for antiplatelet therapy; wasted 9.8 ml of vial 11:55:27 Procedure and supply charges have been captured, reviewed, submitted and are correct. 11:56:22 Vital chart was stopped 11:56:26 Report given to PCU. 11:56:30 Patient transfered to PCU with Bed. 11:56:39 Procedure ended. 11:56:39 Full Disclosure recording stopped 11:56:42 End room use (Document Last) Intervention Summary Intervention Notes Time ActionType Lesion and Equipment Used Action# Pressure Duration Attributes 11:45:40 Inflate Aorta Left EMERGE OTW 1.5 1 21 00:06 balloon -> Mid CX x 20 balloon ([id number]) 11:47:05 Reinflate Aorta Left EMERGE OTW 1.5 2 21 00:05 balloon -> Mid CX x 20 balloon ([id number]) 11:50:36 Place stent Aorta Left KANE RX 2.0 x 3 13 00:04 -> Mid CX 22 stent ([id number]) Device Usage Item Name Manufacture Quantity Catalog Number Hospital Part Current Minimal Lot# / Charge Number Stock Stock Serial# Code IV CATHETER 20g B. Hubbard 1 [id number] 331529 726219 008405 5 ACIST Syringe Acist 1 30421 723903 375108 384893 20 (87057) Medical Systems Inc ACIST Hand Acist 1 11478 330597 559909 120692 5 Control (79311) [employer] Inc ACIST Manifold Acist 1 50750 677153 369424 143241 5 (92454) Medical Systems Inc Medline Cath Cardinal 1 [id number] 907742 40423 296056 5 Pack Health ([id number]) Bag Decanter Microtek 1 2001S 068213 26468 202086 5 (2001S) Medical Inc. DIAGNOSTIC WIRE St Renny 1 456664 553623 525327 417870 30 .035 260cm J wire (411654) CHOICE PT Extra Coffey 1 [id number] 629675 943841 887883 5 Support 182cm Scientific wire ([id number]) INFLATOR Merit Merit 1 [id number] 879464 632531 369520 15 BasixGaiacom Wireless NetworkspaWorkable Medical (XT7427) SHEATH Prelude Merit 1 [id number]-[id number] 798957 0329534 440613 5 6Fr 0.035 Medical (NPS-0Y-60-035) CHOICE PT Extra Coffey 1 [id number] 462192 819724 386707 5 Support J 300cm Scientific guide wire ([id number]) EMERGE OTW 1.5 Coffey 1 [id number] 120774 574321 393827 5 [id number] x 20 balloon Scientific ([id number]) KANE RX 2.0 x Medtronic 1 [id number] 710899 8874924 282389 5 [id number] 22 stent ([id number]) EXOSEAL 6Fr Cardinal 1 EX600 740050 879258 229045 10 (EX600) Health Signature Audit [place] Stage Time Signature Unsigned Intra-Procedure 03/06/2018 July 11:56:52 AM Counts RT(R) Signatures Monitor : July Signature : Counts RT Date : Time : [facility] [address] [place] [address]
[~2018-03-06 01:57] MED LIST changes: +LIPITOR40 MG PO
[2018-03-06] MEDS ORDERED: CATAPRES0.1 MG PO (02:05)
[2018-03-06 02:28] LABS: BASOPHILS 0.6 % (0-2); EOSINOPHILS 6.6 % (0-7); HEMATOCRIT 43.1 % (42.0-54.0); HEMOGLOBIN 15.1 g/dL (13.5-17.5); IMMATURE GRANULOCYTES 0.2 % (0-5); LYMPHOCYTES 30.1 % (15-50); MCH 29.3 pg (26.0-34.0); MCV 83.7 fL (80.0-100.0); MEAN PLATELET VOLUME 9.7 fL (7.4-10.4); MONOCYTES 9.6 % (2-11); NEUTROPHILS 52.9 % (40-80); PLATELET COUNT 144 10x3/uL (130-400); RBC 5.15 10x6/uL (4.20-6.10); RDW 13.2 % (11.5-14.5); WBC 5.1 10x3/uL (4.8-10.8)
[2018-03-06 02:36] LABS: APTT 26.2 SECONDS (22.8-39.4); INR 1.17 (0.85-1.17); PROTIME 14.5 SECONDS (11.6-15.0)
[2018-03-06 02:43] LABS: ALBUMIN 3.9 g/dL (3.4-5.0); ALKALINE PHOSPHATASE 135 U/L (46-116); ALT (SGPT) 35 U/L (10-68); CALC OSMOLALITY 279 mosm/kg (275-300); CALCIUM 9.2 mg/dL (8.5-10.1); CARBON DIOXIDE 27.4 mmol/L (21.0-32.0); CHLORIDE - SERUM 105 mmol/L (98-107); CREATININE - SERUM 1.9 mg/dL (0.6-1.3); GLUCOSE 98 mg/dL (74-106); POTASSIUM - SERUM 3.8 mmol/L (3.5-5.1); PROTEIN - SERUM 7.3 g/dL (6.4-8.2); SODIUM 140 mmol/L (136-145); UREA NITROGEN 14 mg/dL (7-18); eGFR NON AFRICAN AMERICAN 39 mL/min (90-120)
[2018-03-06 02:52] LABS: CKMB 1.3 U/L (0.0-3.6); CREATINE KINASE 109 UL (21-232); PRO BNP 213 pg/mL (0-125); TROPONIN-I 0.031 ng/mL (0.000-0.060)
== END 2018-03-06 17:58 | disposition home or self-care (01) ==
LOC: OBSVTIME → D.ER 01:57 → D.CATH 01:57 → D.ER 01:57 → OBSVTIME 03:24 → D.M2 03:24 → D.ER 03:24 → EDSTATUS 11:52 → D.CATH 17:58 → D.M2 17:58
PROVIDERS: Family Medicine
DX: I25.110 Atherosclerotic heart disease of native coronary artery with unstable angina pectoris (principal); E78.5 Hyperlipidemia, unspecified; I10 Essential (primary) hypertension; Z95.5 Presence of coronary angioplasty implant and graft; Z95.1 Presence of aortocoronary bypass graft; Z01.812 Encounter for preprocedural laboratory examination; Z79.82 Long term (current) use of aspirin; Z79.02 Long term (current) use of antithrombotics/antiplatelets

== ENCOUNTER 2018-08-20 01:55 | Observation (INO) | payer MEDICAID ==
[~2018-08-20] VITALS: Ht 180.3 cm; Wt 113.4 kg
--- NOTE | ~2018-08-20 | OP ---
PATIENT NAME: LORNA HOLMAN MEDICAL RECORD: [id number] :65 LOCATION:D.M2 D.2117 ADMISSION DATE:08/20/18 SURGEON: MADHURI LEYVA MD DATE OF OPERATION: 08/20/2018 PROCEDURE: Left heart catheterization, selective coronary angiography, right femoral artery approach. CATHETERS: A 5-Nepalese sheath, 5/4 left and right Narinder, 5/4 pig. The procedure was well tolerated. The patient returned to vila, sheath removed. ExoSeal device placed. FINDINGS: Left ventriculography in 30-degree GUNTER view shows global hypokinesis. Overall, LV function reduced 25-30%. CORONARY ANATOMY: LEFT MAIN: Left main is free of disease. LAD: Fills for a short period of time and then seen filling the septal truck driver instructor, which gives rise to left to right collaterals. CIRCUMFLEX: Totally occluded. RIGHT CORONARY ARTERY: Fills for a short time, totally occluded. LV GRAM: Aortic root injection shows only vein graft filling, saphenous vein graft to diagonal, saphenous vein graft to circumflex system. BYPASS GRAFTS: BUENO to LAD. Difficult to get a fully engage; however, this appears patent to the LAD itself. Saphenous vein graft to the circumflex is widely patent, fills 2 large OMs with free of disease. Saphenous vein graft to diagonal is widely patent, but has severe diffuse disease distally. Saphenous vein graft to the right, previous intervention is totally occluded at the proximal portion. IMPRESSION: Severe small vessel disease. No role for intervention. We will try to add Ranexa as an antianginal, aggressive risk factor modification. TRANSINT:[id number] Voice Confirmation ID: [id number] DOCUMENT ID: [id number] MADHURI LEYVA MD CC: [id number] DICTATION DATE: 08/20/18 1108 VASCULAR PHYSICIAN: 08/20/18 1653 ADM IN [facility] [address] [place] [address]
--- NOTE | ~2018-08-20 | CN ---
PATIENT NAME:LORNA HOLMAN MEDICAL RECORD: [id number] : 65 LOCATION:D. D.2117 ADMIT DATE: 08/20/18 ACCOUNT: [id number] CONSULTING PHYSICIAN: MADHURI LEYVA MD REFERRING PHYSICIAN: GENOVEVA CLINTON MD DATE OF CONSULTATION: 08/20/2018 HISTORY OF PRESENT ILLNESS: A 53-year-old gentleman with a known history of coronary artery disease, status post intervention, most recently in February by Dr. Melendez. He has a history of dyslipidemia, hypothyroid. Last 2-3 days, recurrent angina reminischent of previous coronary artery disease and intervention, chest tightness and pressure radiating to the jaw, took an extra metoprolol, both the times. First time, he had relief and second time on night of admission, no relief, was admitted for further evaluation. PAST MEDICAL HISTORY: 1. History of coronary artery disease. 2. Hypertension. 3. Hyperlipidemia. ALLERGIES: None known. MEDICATIONS: Include Lipitor 40 mg p.o. daily, clonidine 0.1 b.i.d., Synthroid 137 mcg every day, Plavix 75 every day, and Hytrin 25 every day. SOCIAL HISTORY: He is a nonsmoker, nondrinker. He is , currently disabled. REVIEW OF SYSTEMS: The patient reports easy bruising but reports no swollen glands. The patient reports no fever, no night sweats, no significant weight gain, no significant weight loss. No significant exercise tolerance. The patient reports no dry eyes, no irritation, no vision change. Patient reports no difficulty hearing and no ear pain. Patient reports no frequent nose bleeds or nose and sinus problems. Patient reports on arm pain on exertion. No shortness of breath while lying down. No history of heart murmur. Patient reports no cough, no wheezing or coughing up blood. Patient reports no abdominal pain, no vomiting. Normal appetite. No diarrhea and not vomiting blood. No nausea and no constipation. Patient reports no incontinence. No difficulty urinating. No hematuria. No increased frequency. Patient reports no muscle aches. No weakness, no arthralgias, no back pain. No swelling of the extremities. Patient reports no abnormal mole, no jaundice, no rashes. Reports no loss of consciousness. No weakness and no numbness. No seizures, dizziness, or headaches. The patient reports no depression, no sleep disturbance, feeling safe in a relationship and no alcohol abuse. Patient reports on fatigue. Reports no runny nose or sinus pressure. No itching, no hives, and no frequent sneezing. PHYSICAL EXAMINATION: GENERAL: Pleasant gentleman, in no acute distress, appears stated age. VITAL SIGNS: Blood pressure 120/78, pulse 62 and regular. HEENT: Normocephalic, atraumatic. NECK: No JVD or bruit. HEART: Regular. LUNGS: Good air excursion. ABDOMEN: Soft, nontender. CONSULT REPORT [id number] LORNA HOLMAN EXTREMITIES: Pulses are 2+. No edema. NEUROLOGIC: Grossly intact. DIAGNOSTIC DATA: ECG shows nonspecific ST-T changes consistent with LVH. IMPRESSION: Accelerated angina, acute coronary syndrome. PLAN: Diagnostic angiography, intervention based on above. TRANSINT:[id number] Voice Confirmation ID: [id number] DOCUMENT ID: [id number] MADHURI LEYVA MD CC: [id number] DICTATION DATE: 08/20/18 0855 SOFTWARE DEVELOPER MANAGER: 08/20/18 1314 ADM IN [place] [id number] [place] [address]
--- NOTE | ~2018-08-20 | MORECARE ---
CASE MANAGEMENT DISCHARGE SUMMARY PATIENT: LORNA HOLMAN UNIT: [id number] ADM DATE: 08/20/18 AGE: 53 : 65 SEX: M ROOM/BED: D.2117 AUTHOR: JOSE G INTERIANO PHYSICIAN: REFERRING PHYSICIAN: GENOVEVA CLINTON MD DATE OF SERVICE: 08/22/18 Discharge Plan Patient Name: LORNA HOLMAN Facility: [facility]:[place] : 1965 Planned Disposition: Home Anticipated Discharge Date: 08/20/18 Discharge Date: 08/20/2018 Expected LOS: 1 Initial Reviewer: [email or web address] Initial Review Date: 08/22/2018 Generated: 08/22/18 12:27 pm Patient Name: LORNA HOLMAN Page 44127 at 1127 All edits/amendments must be made on the electronic document DICTATION DATE: 08/22/181126 CLINICAL STATISTICAL PROGRAMMER: DENISE 08/22/181126 RPT#: [id number] DC DATE:08/20/18 STATUS: DIS IN [facility] [address] [place] [address] END OF REPORT
--- NOTE | ~2018-08-20 | HEMODYNAMI ---
PATIENT:LORNA HOLMAN MEDICAL RECORD: [id number] : 65 [id number] ADMISSION DATE: 08/20/18 Generatedon:08/20/201811:06 Patient name: LORNA HOLMAN Patient #: [id number] SSN: : 1965 Date of study: 08/20/2018 Page: Of Hemodynamic Procedure Report Patient Data Patient Demographics Procedure consent was obtained First Name: LORNA Gender: Male Last Name: RIVER : 1965 Middle Initial: MEAGAN Age: 53 year(s) Patient #: [id number] Race: Unknown Additional ID: [id number] Contact details Address: [address] [place] [address] State: [place] City: [place] Zip code: [address] Past Medical History Allergies: No known allergies Admission Admission Data Admission Date: 08/20/2018 Admission Time: 2:55 Admit Source: Other Room #: D.2117 Lab Results Lab Result Date: 08/20/2018 Lab Result Time: 2:12 Biochemistry Name Units Result Min Max BUN mg/dl 20 --(----)*- 7 18 Creatinine mg/dl 1.6 --(----)-* 0.6 1.3 CBC Name Units Result Min Max Hematocrit % 43.1 --(*---)-- 42 54 Hemoglobin g/dl 15.2 --(-*--)-- 13.5 17.5 Procedure Procedure Types Cath Procedure Diagnostic Procedure LHC LHC w/Coronaries w/Grafts Sedation Charges Moderate Sedation up to 15 minutes Procedure Description Procedure Date Procedure Date: 08/20/2018 Procedure Start Time: 10:45 Procedure End Time: 11:03 Procedure Staff Name Function Girma Gonzalez MD Performing Physician Carrillo James RT Monitor Tracy Casillas RT Scrub Tri Maguire RN Nurse Procedure Data Cath Procedure Fluoroscopy Diagnostic fluoroscopy Total fluoroscopy Time: 7.3 time: 7.3 min min Diagnostic fluoroscopy Total fluoroscopy dose: dose: 1096 mGy 1096 mGy Contrast Material Contrast Material Type Amount (ml) Isovue 300 131 Entry Location Entry Primary Successful Side Size Upsize Upsize Entry Closure Succes sful Closure Location (Fr) 1 (Fr) 2 (Fr) Remarks Device Remarks Femoral Right 5 Fr Exoseal artery Estimated blood loss: 5 ml Diagnostic catheters Device Type Used For End Catheter Placement MULTIPACK JL 4.0 5Fr Procedure catheter MULTIPACK 3DRC 5Fr Procedure catheter DIAGNOSTIC AR MOD 5Fr Procedure Catheter ([id number]) MULTIPACK Pigtail 5 Fr Procedure catheter Procedure Complications No complications Procedure Medications Medication Administration Route Dosage 0.9% NaCl I.V. 100 ml/hr Oxygen etCO2 Nasal cannula 2 l/min Lidocaine 2% added to field 20 Heparin Flush Bag added to field 2 bags (1000units/500ml NS) Versed I.V. 2 mg Fentanyl I.V. 100 mcg Versed I.V. 2 mg Fentanyl I.V. 100 mcg Versed I.V. 2 mg Hemodynamics Rest HGB: 15.2 (g/dl) Heart Rate: 65 (bpm) Pressure Samples Time Site Value (mmHg) Purpose Heart Use Rate(bpm) 10:58 LV 117/16,30 Snapshot 79 10:59 AO 111/79(93) Pullback 66 10:59 LV 95/-8,8 Pullback 66 Gradients Valve Time Site 1 Site 2 Mean SEP/DFP Peak To Heart Use (mmHg) (sec/min) Peak Rate (mmHg) (bpm) Aortic 10:59 LV AO 0 66 95/-8,8 111/79(93) Calculations Valve P-P Mean Valve Index Valve Source Name Gradient Area Flow (cm2) Aortic 0 0 Snapshots Pre Cath Intra NCS Post Cath Vital Signs Time Heart Resp SPO2 etCO2 NIBP (mmHg) Rhythm Pain Sedation Rate (ipm) (%) (mmHg) Status Level (bpm) 10:34:23 59 24 97 37 134/90(114) NSR 0 (11) 10(A) , No pain 10:38:47 54 17 99 34.4 135/83(105) NSR 0 (11) 10(A) , No pain 10:43:01 56 13 98 21.7 124/89(104) NSR 0 (11) 10(A) , No pain 10:47:19 63 10 97 21.7 137/85(110) NSR 0 (11) 10(A) , No pain 10:52:37 64 13 97 30 132/86(100) NSR 0 (11) 10(A) , No pain 10:56:57 67 6 98 19.5 125/69(94) NSR 0 (11) 9(A) , No pain 11:01:17 56 10 98 19.5 120/74(92) NSR 0 (11) 10(A) , No pain Medications Time Medication Route Dose Verified Delivered Reason Notes Eff ectiveness by by 10:40:39 0.9% NaCl I.V. 100 Girma Tri used for ml/hr [facility] procedure RN 10:40:47 Oxygen etCO2 2 Girma Tri used for Nasal l/min [facility] procedure cannula MD WHITESIDE 10:40:53 Lidocaine 2% added 20ml Girma Girma for local to vial [facility] anesthetic field MD CHANEY 10:40:58 Heparin Flush added 2 Girma Girma used for Bag to bags [facility] procedure (1000units/500ml field MD CHANEY NS) 10:41:43 Versed I.V. 2 mg Girma Tri for Inland Andrez sedation RN 10:41:48 Fentanyl I.V. 100 Girma Tri for mcg LisaJeison Maguire sedation RN 10:47:18 Versed I.V. 2 mg Girma Tri for LisaJeison Maguire sedation RN 10:47:28 Fentanyl I.V. 100 Girma Tri for mcg LisaJeison Maguire sedation RN 10:53:09 Versed I.V. 2 mg Girma Tri for LisaJeison Maguire sedation mud boss Log Time Note 10:15:44 Tracy Casillas RT(R) sent for patient. Start room use. 10:25:57 Informed consent obtained and on chart 10:26:26 Admit Source: Other 10:26:43 Diagnostic Cath status Elective 10:26:50 Time tracking: Call back (After hours or weekends) 10:26:54 Plan of Care:Hemodynamics will remain stable., Cardiac rhythm will remain stable., Comfort level will be maintained., Respiratory function will remain adequate., Patient/ family verbilizes understanding of procedure., Procedure tolerated without complication., Recovers from procedure without complications.. 10:27:00 Patient [facility] from [facility] to [facility] Alert and oriented. Tansferred to table in Supine position. 10:27:02 Warm blankets applied, and tyron hugger turned on for patient comfort. 10:27:02 Correct patient and procedure confirmed by team. 10:27:03 ECG and BP/O2 sat monitors applied to patient. 10:32:58 Vital chart was started 10:39:13 Baseline sample Acquired. 10:39:19 Rhythm: sinus rhythm 10:39:21 Full Disclosure recording started 10:39:31 H&P Date Dictated: 08/20/2018 Within 30 days and on chart.. 10:39:33 Pre-procedure instructions explained to patient. 10:39:34 Pre-op teaching completed and patient verbalized understanding. 10:39:43 Family unavailable. 10:39:44 Patient NPO since Midnight. 10:39:50 Patient allergic to No known allergies 10:39:52 Is the patient allergic to Iodine/contrast media? No. 10:39:52 Is patient on blood thinner?Yes 10:39:55 ACC The patient was administered the following blood thiners within the last 24 hours: ACCPlavix 10:39:56 Patient diabetic? No. 10:40:05 Previous problem with sedation/anesthesia? No ? 10:40:07 Snore? No 10:40:08 Sleep apnea? No 10:40:10 Deviated septum? No 10:40:10 Opens mouth fully? Yes 10:40:11 Sticks out tongue? Yes 10:40:13 Airway obstruction? No ? 10:40:16 Dentures? No ? 10:40:20 Pre procedure: right posterior tibial pulse 2+ Normal; easily identifiable; not easily obliterated 10:40:24 Patient pain scale 0/10 ?. 10:40:31 IV patent on arrival in right wrist with 0.9% NaCl at O. 10:40:33 Lab results completed and on chart. 10:40:36 Right groin area was prepped with chlora-prep and draped in sterile fashion 10:40:37 Alarms reviewed by R. N. 10:40:38 Sharps counted by scrub and verified by R.N. 10:40:39 0.9% NaCl 100 ml/hr I.V. was administered by Tri Andrez RN; used for procedure; 10:40:39 Use device set Femoral Dx 10:40:40 ACIST Syringe (36775) opened to sterile field. 10:40:41 Bag Decanter (2002S) opened to sterile field. 10:40:41 Medline Cath Pack ([id number]) opened to sterile field. 10:40:42 ACIST Hand Control (72372) opened to sterile field. 10:40:43 ACIST Manifold (71069) opened to sterile field. 10:40:43 DIAGNOSTIC Multipack 5Fr catheter set (BP7763) opened to sterile field. 10:40:44 Tegaderm 4 x 4 (1626W) opened to sterile field. 10:40:44 SHEATH 5FR [place] (TYI127) opened to sterile field. 10:40:45 DIAGNOSTIC WIRE .035 260cm J wire (385362) opened to sterile field. 10:40:47 Oxygen 2 l/min etCO2 Nasal cannula was administered by Tri Maguire RN; used for procedure; 10:40:51 Physician arrived 10:40:51 --------ALL STOP TIME OUT------ 10:40:51 Final Timeout: patient, procedure, and site verified with staff and physician. All members of the team are in agreement. 10:40:53 Lidocaine 2% 20ml vial added to field was administered by Girma Gonzalez MD; for local anesthetic; 10:40:53 Right groin site verified by team. 10:40:56 Physical assessment completed. ASA score P 2 - A patient with mild systemic disease as per Girma Gonzalez MD. 10:40:58 Heparin Flush Bag (1000units/500ml NS) 2 bags added to field was administered by Girma Gonzalez MD; used for procedure; 10:40:58 Sedation plan: IV Moderate Sedation Medication:Versed, Fentanyl 10::29 Lab Result : BUN 20 mg/dl 10:: Lab Result : Creatinine 1.6 mg/dl ::29 Lab Result : Hemoglobin 15.2 g/dl 10::29 Lab Result : Hematocrit 43.1 % 10:41:43 Versed 2 mg I.V. was administered by Tri Maguire RN; for sedation; 10:41:48 Fentanyl 100 mcg I.V. was administered by Tri Maguire RN; for sedation; 10:44:30 Zero performed for pressure channel P1 10:44:33 Zero performed for pressure channel P1 10:45:36 Procedure started. 10:45:39 Local anesthetic to right femoral artery with Lidocaine 2% by Girma Gonzalez MD.INITIAL ACCESS ONLY 10:45:46 A 5 Fr sheath was inserted into the Right Femoral artery 10:47:16 A MULTIPACK JL 4.0 5Fr catheter was advanced over the wire and used for Procedure. 10:47:18 Versed 2 mg I.V. was administered by Tri Maguire RN; for sedation; 10:47:20 LCA angiography performed. 10:47:28 Fentanyl 100 mcg I.V. was administered by Tri Maguire RN; for sedation; 10:47:49 Catheter exchanged over wire. 10:47:54 A MULTIPACK 3DRC 5Fr catheter was advanced over the wire and used for Procedure. 10:49:46 SVG to OM angiography performed. 10:49:48 SVG to Circ angiography performed. 10:49:51 SVG to Diag angiography performed. 10:49:55 RCA angiography performed. 10:50:07 SVG to RCA angiography performed. 10:51:58 BUENO to LAD angiography performed. 10:52:01 Catheter exchanged over wire. 10:52:04 A DIAGNOSTIC AR MOD 5Fr Catheter ([id number]) was advanced over the wire and used for Procedure. 10:53:09 Versed 2 mg I.V. was administered by Tri Maguire RN; for sedation; 10:57:28 SVG to RCA occluded. 10:57:30 Catheter exchanged over wire. 10:57:36 A MULTIPACK Pigtail 5 Fr catheter was advanced over the wire and used for Procedure. 10:58:43 LV gram done using GUNTER 10:58:45 Injector settings: Ml/sec: 10, Volume: 20, 10:58:46 LV hemodynamics recorded. 10:58:58 EF : 30 % 10:59:23 Aortic Root visualized 11:00:00 Catheter removed. 11:00:02 EXOSEAL 5Fr (EX500) opened to sterile field. 11:00:11 Sheath removed intact; hemostasis achieved with Exoseal to the Right Femoral artery. 11:00:16 Procedure ended.(Physican Out) 11:00:24 Fluoroscopy time 07.30 minutes. 11:00:29 Flurop Dose total: 1096 11:00:29 Fluoroscopy dose: 1096 mGy 11:00:32 Contrast amount:Isovue 300 131ml. 11:00:34 Sharps counted by scrub and verified by R.N. 11:00:34 Insertion/operative site no bleeding no hematoma. 11:00:37 Post-op/insertion site Right Femoral artery dressed using a 4 x 4 and Tegaderm. 11:00:51 Post right femoral artery:stable, soft, clean and dry 11:00:53 Post Procedure Pulses reassessed and unchanged 11:00:55 Post-procedure physical assessment completed. ASA score P 2 - A patient with mild systemic disease as per Girma Gonzalez MD. 11:00:58 Post procedure rhythm: unchanged. 11:01:02 Estimated blood loss: 5 ml 11:01:03 Post procedure instruction explained to patient.Patient verbalizes understanding. 11:01:06 Patient needs reinforcement of post procedure teaching. 11:01:22 Procedure type changed to Cath procedure, Diagnostic procedure, LHC, LHC w/Coronaries w/Grafts, Sedation Charges, Moderate Sedation up to 15 minutes 11:01:41 Procedure and supply charges have been captured, reviewed, submitted and are correct. 11:01:44 Procedure Complication : No complications 11:02:50 Vital chart was stopped 11:02:52 See physician's report for complete and final results. 11:02:54 Report given to PCU. 11:02:57 Patient transfered to PCU with Stretcher. 11:02:59 Procedure ended. 11:02:59 Full Disclosure recording stopped 11:03:03 End room use (Document Last) Device Usage Item Name Manufacture Quantity Catalog Hospital Part Current Minimal L ot# / Number Charge Number Stock Stock Serial# Code ACIST Acist 1 90885 380104 286765 151592 20 Syringe Medical (41630) Systems Inc Bag Microtek 1 374662 94253 158763 5 Decanter Medical Inc. () Medline Medline 1 [id number] 619156 89110 872948 5 Cath Pack ([id number]) ACIST Hand Acist 1 30657 801299 718297 854996 5 Control Medical (67643) Systems Inc ACIST Acist 1 56234 776432 567164 714226 5 Manifold Medical (62359) Systems Inc DIAGNOSTIC Cardinal 1 BE4388 475215 20799 723899 30 Multipack Health 5Fr catheter set (QV6302) Tegaderm 4 3M 1 1626W 360838 513727 526707 5 x 4 (1626W) SHEATH 5FR Terumo 1 VZY047 746642 106355 286343 5 [place] (ODH709) DIAGNOSTIC St Renny 1 334080 107642 806616 557990 30 WIRE .035 260cm J wire (724452) MULTIPACK Cardinal 1 791167 5 JL 4.0 5Fr Health catheter MULTIPACK Cardinal 1 862186 5 3DRC 5Fr Health catheter DIAGNOSTIC Cardinal 1 [id number] 085158 373045 112657 15 [place] MOD 5Fr Health Catheter (911983G) MULTIPACK Cardinal 1 331962 5 Pigtail 5 Health Fr catheter EXOSEAL 5Fr Cardinal 1 EX500 435364 065391 487045 10 (EX500) Health Signature Audit [place] Stage Time Signature Unsigned Intra-Procedure 08/20/2018 Carrillo James 11:06:01 AM RT(R) Signatures Monitor : Carrillo James RT Signature : Date : Time : [place] [id number] [facility] [place] [address]
[~2018-08-20 01:55] MED LIST changes: +CATAPRES0.1 MG PO
[2018-08-20 02:16] LABS: BASOPHILS 0.3 % (0-2); EOSINOPHILS 7.6 % (0-7); HEMATOCRIT 43.1 % (42.0-54.0); HEMOGLOBIN 15.2 g/dL (13.5-17.5); IMMATURE GRANULOCYTES 0.2 % (0-5); LYMPHOCYTES 31.4 % (15-50); MCH 30.8 pg (26.0-34.0); MCHC 35.3 g/dL (31.0-37.0); MCV 87.2 fL (80.0-100.0); MONOCYTES 10.5 % (2-11); PLATELET COUNT 121 10x3/uL (130-400); RBC 4.94 10x6/uL (4.20-6.10); RDW 13.1 % (11.5-14.5); WBC 6.6 10x3/uL (4.8-10.8)
[2018-08-20 02:25] VITALS: BP 160/78
[2018-08-20 02:29] LABS: INR 1.07 (0.85-1.17); PROTIME 13.4 SECONDS (11.6-15.0)
[2018-08-20 02:31] LABS: ALKALINE PHOSPHATASE 154 U/L (46-116); ALT (SGPT) 155 U/L (10-68); BILIRUBIN - TOTAL 0.36 mg/dL (0.2-1.3); CALC OSMOLALITY 283 mosm/kg (275-300); CALCIUM 8.5 mg/dL (8.5-10.1); CHLORIDE - SERUM 104 mmol/L (98-107); CREATININE - SERUM 1.6 mg/dL (0.6-1.3); GLUCOSE 98 mg/dL (74-106); POTASSIUM - SERUM 3.8 mmol/L (3.5-5.1); PROTEIN - SERUM 7.4 g/dL (6.4-8.2); SODIUM 141 mmol/L (136-145); UREA NITROGEN 20 mg/dL (7-18); eGFR NON AFRICAN AMERICAN 48 mL/min (90-120)
[2018-08-20 02:46] LABS: CKMB 4.3 U/L (0.0-3.6); CREATINE KINASE 170 UL (21-232); MAGNESIUM - SERUM 2.1 mg/dL (1.8-2.4)
[2018-08-20 02:48] LABS: TROPONIN-I 0.822 ng/mL (0.000-0.060)
[2018-08-20] MEDS ORDERED: TOPROL XL25 MG PO (03:30)
[2018-08-20] MEDS ORDERED: PRINIVIL10 MG PO (03:31)
[2018-08-20 03:45] VITALS: BP 115/82
[2018-08-20 03:59] VITALS: BP 115/82; BMI 34.9
[2018-08-20 08:14] VITALS: Ht 180.3 cm; Wt 113.4 kg
[2018-08-20 08:46] VITALS: BP 120/79
[2018-08-20] MEDS ORDERED: RANEXA500 MG PO (12:49)
[2018-08-20 14:51] VITALS: BP 110/92
== END 2018-08-20 16:00 | disposition home or self-care (01) ==
LOC: D.ER 01:55 → OBSVTIME 02:55 → D.M2 02:55
PROVIDERS: Emergency Medicine
DX: I25.110 Atherosclerotic heart disease of native coronary artery with unstable angina pectoris (principal); I10 Essential (primary) hypertension; Z95.1 Presence of aortocoronary bypass graft; E78.5 Hyperlipidemia, unspecified; E03.9 Hypothyroidism, unspecified; K21.9 Gastro-esophageal reflux disease without esophagitis

== ENCOUNTER 2018-09-03 00:51 | Observation (INO) | payer MEDICAID ==
[~2018-09-03] VITALS: Ht 180.3 cm; Wt 120.5 kg
[2018-09-03] VITALS (8 sets, daily range): BP systolic 126–160; BP diastolic 81–92; Ht 180.3 cm; Wt 120.5 kg
[~2018-09-03 00:51] MED LIST changes: +PRINIVIL10 MG PO; +RANEXA500 MG PO; +TOPROL XL25 MG PO
[2018-09-03 01:16] LABS: HEMATOCRIT 41.1 % (42.0-54.0); HEMOGLOBIN 14.6 g/dL (13.5-17.5); LYMPHOCYTES 33.1 % (15-50); MCH 30.8 pg (26.0-34.0); MCHC 35.5 g/dL (31.0-37.0); MCV 86.7 fL (80.0-100.0); MEAN PLATELET VOLUME 9.1 fL (7.4-10.4); NEUTROPHILS 51.9 % (40-80); PLATELET COUNT 125 10x3/uL (130-400); RBC 4.74 10x6/uL (4.20-6.10); RDW 13.2 % (11.5-14.5); WBC 5.2 10x3/uL (4.8-10.8)
[2018-09-03 01:29] LABS: APTT 25.1 SECONDS (22.8-39.4); INR 1.17 (0.85-1.17); PROTIME 14.3 SECONDS (11.6-15.0)
[2018-09-03 01:30] LABS: ALBUMIN 3.7 g/dL (3.4-5.0); ALKALINE PHOSPHATASE 151 U/L (46-116); ALT (SGPT) 46 U/L (10-68); BILIRUBIN - TOTAL 0.29 mg/dL (0.2-1.3); CALC OSMOLALITY 290 mosm/kg (275-300); CALCIUM 8.5 mg/dL (8.5-10.1); CARBON DIOXIDE 24.6 mmol/L (21.0-32.0); CHLORIDE - SERUM 108 mmol/L (98-107); CREATININE - SERUM 1.8 mg/dL (0.6-1.3); GLUCOSE 113 mg/dL (74-106); POTASSIUM - SERUM 3.9 mmol/L (3.5-5.1); SODIUM 144 mmol/L (136-145); UREA NITROGEN 20 mg/dL (7-18); eGFR NON AFRICAN AMERICAN 42 mL/min (90-120)
[2018-09-03 01:52] LABS: CKMB 2.7 U/L (0.0-3.6); CREATINE KINASE 113 UL (21-232); MAGNESIUM - SERUM 1.9 mg/dL (1.8-2.4)
[2018-09-03 01:55] LABS: TROPONIN-I 0.085 ng/mL (0.000-0.060)
[2018-09-03 08:35] LABS: CKMB 2.1 U/L (0.0-3.6); CREATINE KINASE 91 UL (21-232)
[2018-09-03 08:37] LABS: TROPONIN-I 0.097 ng/mL (0.000-0.060)
[2018-09-03 10:39] LABS: CKMB 1.7 U/L (0.0-3.6); CREATINE KINASE 86 UL (21-232)
[2018-09-03 10:40] LABS: TROPONIN-I 0.098 ng/mL (0.000-0.060)
[2018-09-03] MEDS ORDERED: ASPIRIN325 MG PO (13:12)
[2018-09-03] MEDS ORDERED: NITRO-DUR0.6 MG TRANSDERM (13:12)
--- NOTE | 2018-09-05 08:56 | MORECARE ---
CASE MANAGEMENT DISCHARGE SUMMARY PATIENT: LORNA HOLMAN UNIT: [id number] ADM DATE: 09/03/18 AGE: 53 : 65 SEX: M ROOM/BED: D.2101 AUTHOR: JOSE G INTERIANO PHYSICIAN: REFERRING PHYSICIAN: KATIE FINK MD DATE OF SERVICE: 09/05/18 Discharge Plan Patient Name: LORNA HOLMAN Facility: [facility]:[place] : 1965 Planned Disposition: Home Anticipated Discharge Date: 09/03/18 Discharge Date: 09/03/2018 Expected LOS: 1 Initial Reviewer: [email or web address] Initial Review Date: 09/05/2018 Generated: 09/05/18 9:56 am Patient Name: LORNA HOLMAN Page 69905 at 0856 All edits/amendments must be made on the electronic document DICTATION DATE: 09/05/1856 FINANCE OFFICER: DENISE 09/05/18 0856 RPT#: [id number] DC DATE:09/03/18 STATUS: DIS IN [facility] [address] [place] [address] END OF REPORT
--- NOTE | 2018-09-05 09:03 | MORECARE ---
CASE MANAGEMENT DISCHARGE SUMMARY PATIENT: LORNA HOLMAN UNIT: [id number] ADM DATE: 09/03/18 AGE: 53 : 65 SEX: M ROOM/BED: D.2101 AUTHOR: JOSE G INTERIANO PHYSICIAN: REFERRING PHYSICIAN: KATIE FINK MD DATE OF SERVICE: 09/05/18 Discharge Plan Patient Name: LORNA HOLMAN Facility: [facility]:[place] : 1965 Planned Disposition: Home Anticipated Discharge Date: 09/03/18 Discharge Date: 09/03/2018 Expected LOS: 1 Initial Reviewer: [email or web address] Initial Review Date: 09/05/2018 Generated: 09/05/18 10:03 am Patient Name: LORNA HOLMAN Page 04554 at 0903 All edits/amendments must be made on the electronic document DICTATION DATE: 09/05/18902 RETAIL LOAN OFFICER: DENISE 09/05/18902 RPT#: [id number] DC DATE:09/03/18 STATUS: DIS IN [facility] [address] [place] [address] END OF REPORT
--- NOTE | 2018-09-05 14:36 | CN ---
PATIENT NAME:LORNA HOLMAN MEDICAL RECORD: [id number] : 65 LOCATION:D. D.2101 ADMIT DATE: 09/03/18 ACCOUNT: [id number] CONSULTING PHYSICIAN: JENNIFER VICK MD REFERRING PHYSICIAN: KATIE FINK MD DATE OF CONSULTATION: 09/03/2018 DIAGNOSES: 1. Angina, chronic. 2. Coronary artery disease. 3. Status post coronary bypass graft surgery. 4. Hypertension. 5. Hyperlipidemia. HISTORY: Mr. Holman presents with continued angina. Troponin is elevated. He was just seen by Dr. Daley on August 20 with similar. He had a cardiac catheterization revealing patency of the vein graft to the circumflex, diagonal, BUENO to the LAD, and closure of the vein graft to the RCA. He had diffuse distal disease and small vessel disease. This is the etiology of his chronic angina as well as the closure of the RCA territory. This was only a medical management situation. There was no role for cardiac intervention. He was placed on Ranexa as well as on lisinopril, metoprolol, and Lipitor. He has continued to have anginal symptomatology in a debilitating way. He is unable to really do any significant exertion without having significant anginal symptomatology. In the past, he was on nitro patch. He only took this p.r.n. and it was only 0.2 mg patch. His systolic blood pressure is in the 130s and heart rate is in the 70s. PHYSICAL EXAMINATION: GENERAL APPEARANCE: Well-nourished, well-developed, appears stated age. Level of distress, comfortable. PSYCHIATRIC: Mental status, alert, normal affect. Orientation, oriented to time, place and person. EYES: Lids and conjunctiva, noninjected. No discharge, no pallor. ENT: Lips, teeth, gums, normal dentition. Oropharynx, no cyanosis, no pallor. NECK: Carotid arteries, bilateral normal upstroke, no bruits, no thrills. JUGULAR VEINS: No jugular venous pressure or distention. CERVICAL LYMPH NODES: Nontender, nonenlarged. THYROID: Not enlarged. Nontender. No nodules. LUNGS: Respiratory effort, unlabored. CHEST: Normal curvature. No thoracic deformity. No chest wall tenderness. Percussion, resonant. Auscultation, clear. No wheezes, no rales, no rhonchi. CARDIOVASCULAR: Precordial exam, nondisplaced. No heaves or pericardial thrills. Rate and rhythm, regular. Heart sounds, normal S1, normal S2. No S3, no gallop, no rub. Systolic murmur, not heard. Diastolic murmur, not heard. EXTREMITIES: No cyanosis, no edema. Peripheral pulses, full and equal in all extremities, except as noted. No bruits appreciated. ABDOMEN: Soft, nondistended. Normal aorta. No bruit. Nontender. No masses. Liver, nontender, no hepatomegaly. Spleen, nontender, no splenomegaly. MUSCULOSKELETAL: No joint tenderness. No joint swelling. No erythema. NEUROLOGICAL: Normal gait, normal strength, normal tone. SKIN: Warm and dry. OVERALL IMPRESSION: Continued anginal symptomatology. It is debilitating. We will add the nitro patch back at 0.6. Continue the Ranexa. We will see him CONSULT REPORT [id number] LORNA HOLMAN this week on for an appointment to see if this has made a difference and continue medical adjustment. He is only on 500 mg of Ranexa. We could go up to 1000 mg twice a day on the Ranexa for the angina. This will be determined with what angina he has after the addition of the nitro patch. TRANSINT:[id number] Voice Confirmation ID: [id number] DOCUMENT ID: [id number] JENNIFER VICK MD at 1436 CC: [id number] DICTATION DATE: 09/03/18 1048 RAILROAD CROSSING PROTECTION MAINTAINER: 09/03/18 1836 DIS IN 09/03/18 [facility] [address] [place] [id number]
== END 2018-09-03 13:54 | disposition home or self-care (01) ==
LOC: D.ER 00:51 → OBSVTIME 03:12 → D.M2 03:12
PROVIDERS: Family Medicine; ADMIT Family Medicine
DX: I25.118 Atherosclerotic heart disease of native coronary artery with other forms of angina pectoris (principal); Z95.1 Presence of aortocoronary bypass graft; I10 Essential (primary) hypertension; E78.5 Hyperlipidemia, unspecified; E03.9 Hypothyroidism, unspecified

== ENCOUNTER 2018-11-13 20:35 | Observation (INO) | payer MEDICAID ==
[~2018-11-13] VITALS: Ht 180.3 cm; Wt 111.8 kg
--- NOTE | ~2018-11-13 | HEMODYNAMI ---
PATIENT:LORNA HOLMAN MEDICAL RECORD: [id number] : 65 LOCATION[id number] ADMISSION DATE: 11/14/18 Generatedon:11/14/201817:13 Patient name: LORNA HOLMAN Patient #: [id number] SSN: : 1965 Date of study: 11/14/2018 Page: Of Hemodynamic Procedure Report Patient Data Patient Demographics Procedure consent was obtained First Name: LORNA Gender: Male Last Name: RIVER : 1965 Middle Initial: MEAGAN Age: 53 year(s) Patient #: [id number] Race: Unknown Additional ID: [id number] Contact details [address]: [address] [place] [address] State: [place] City: [place] Zip code: [address] Past Medical History Allergies: No known allergies Admission Admission Data Admission Date: 11/14/2018 Admission Time: 1:02 Admit Source: Other Room #: D.2123 Height (in.): 71 BSA: 2.28 (m2) Height (cm.): 180.34 BMI: 33.61 (kg/m2) Weight (lbs.): 241 Weight (kg.): 109.32 Lab Results Lab Result Date: 11/14/2018 Lab Result Time: 0:00 Biochemistry Name Units Result Min Max BUN mg/dl 14 --(--*-)-- 7 18 Creatinine mg/dl 1.7 --(----)-* 0.6 1.3 CBC Name Units Result Min Max Hemoglobin g/dl 15.4 --(-*--)-- 13.5 17.5 Procedure Procedure Types Cath Procedure Diagnostic Procedure LHC LHC w/Coronaries w/Grafts Sedation Charges Moderate Sedation up to 15 minutes PCI Procedure AMI/SVG/PORT CRANE OPERATOR PTCA or Stent SVG-BMS/JB Initial Procedure Description Procedure Date Procedure Date: 11/14/2018 Procedure Start Time: 16:53 Procedure End Time: 17:13 Procedure Staff Name Function Cristofer Melendez MD Performing Physician July Quezada RT Monitor Carrillo James RT Scrub Salvador Oliva RN Nurse Meagan Cotton RT Pattern Perforating Machine Operator Procedure Data Cath Procedure Fluoroscopy Diagnostic fluoroscopy Total fluoroscopy Time: 8.1 time: 8.1 min min Diagnostic fluoroscopy Total fluoroscopy dose: dose: 1098 mGy 1098 mGy Contrast Material Contrast Material Type Amount (ml) Isovue 300 164 Entry Location Entry Primary Successful Side Size Upsize Upsize Entry Closure Succes sful Closure Location (Fr) 1 (Fr) 2 (Fr) Remarks Device Remarks Femoral Right 5 Fr 6 Fr Exoseal artery Short Estimated blood loss: 10 ml Diagnostic catheters Device Type Used For End Catheter Placement MULTIPACK Pigtail 5 Fr LV Angiography catheter MULTIPACK JL 4.0 5Fr Left Coronary catheter Angiography MULTIPACK 3DRC 5Fr Internal mammary catheter arteriography MULTIPACK 3DRC 5Fr SVG Angiography catheter DIAGNOSTIC AR2 MOD 5 Fr SVG Angiography catheter ([id number]) Procedure Complications No complications Procedure Medications Medication Administration Route Dosage Oxygen etCO2 Nasal cannula 2 l/min Lidocaine 2% added to field 20 Heparin Flush Bag added to field 2 bags (1000units/500ml NS) 0.9% NaCl I.V. 100 ml/hr Versed I.V. 2 mg Fentanyl I.V. 100 mcg Versed I.V. 1 mg Fentanyl I.V. 50 mcg Heparin Bolus I.V. 4000 units Hemodynamics Rest BSA: 2.28 (m2) O2 Consumption: Estimated: 310.08 (ml/min) O2 Consumption indexed : Estimated:136 (ml/min/m) Pre Cath Intra NCS Post Cath Vital Signs Time Heart Resp SPO2 etCO2 NIBP (mmHg) Rhythm Pain Sedation Rate (ipm) (%) (mmHg) Status Level (bpm) 16:45:07 58 17 98 0 135/100(118) NSR 0 (11) 10(A) , No pain 16:50:35 59 16 99 9 150/98(122) NSR 0 (11) 10(A) , No pain 16:55:43 59 17 99 29.4 150/97(116) NSR 0 (11) 9(A) , No pain 17:02:43 62 17 99 21.1 137/88(110) NSR 0 (11) 9(A) , No pain 17:07:55 65 18 99 29.4 141/94(115) NSR 0 (11) 9(A) , No pain 17:12:03 62 17 99 36.2 138/93(117) NSR 0 (11) 10(A) , No pain Medications Time Medication Route Dose Verified Delivered Reason Notes Effectiveness by by 16:49:37 Oxygen etCO2 2 Cristofer Buffie used for Nasal l/min Nora Oliva RN procedure cannula 16:50:43 Lidocaine 2% added 20ml Cristofer Cristofer for local to vial Nora Melendez MD anesthetic field 16:50:50 Heparin Flush added 2 Cristofer Cristofer used for Bag to bags Nora Melendez MD procedure (1000units/500ml field NS) 16:50:59 0.9% NaCl I.V. 100 Cristofer Buffie Per physician ml/hr Nora Oliva RN 16:52:08 Versed I.V. 2 mg Cristofer Wellsie for sedation Nora Oliva RN 16:52:16 Fentanyl I.V. 100 Cristofer Wellsie for sedation mcg Nora Oliva RN 16:56:47 Versed I.V. 1 mg Cristofer Wellsie for sedation Nora Oliva RN 16:56:51 Fentanyl I.V. 50 Cristofer Wellsie for sedation mcg Nora Oliva RN 17:01:08 Heparin Bolus I.V. 4000 Cristofer Wellsie for verif ied units Nora Oliva RN anticoagulation with dr melendez Procedure Log Time Note 16:15:09 Meagan Cotton RT(R) sent for patient. Start room use. 16:29:00 Informed consent obtained and on chart 16:29:03 Admit Source: Other 16:31:07 Diagnostic Cath status Elective 16:31:13 Time tracking: Regular hours (M-F 7:00 - 5:00) 16:31:17 Plan of Care:Hemodynamics will remain stable., Cardiac rhythm will remain stable., Comfort level will be maintained., Respiratory function will remain adequate., Patient/ family verbilizes understanding of procedure., Procedure tolerated without complication., Recovers from procedure without complications.. 16:38:52 Patient received from Med II to CCL 1 Alert and oriented. Tansferred to table in Supine position. 16:38:53 Warm blankets applied, and tyron hugger turned on for patient comfort. 16:38:53 Correct patient and procedure confirmed by team. 16:38:54 ECG and BP/O2 sat monitors applied to patient. 16:38:55 Pre-procedure instructions explained to patient. 16:38:55 Pre-op teaching completed and patient verbalized understanding. 16:38:57 Family in patients room. 16:38:58 Patient NPO since Midnight. 16:45:58 Patient allergic to No known allergies 16:46:59 Is the patient allergic to Iodine/contrast media? No. 16:47:07 Is patient on blood thinner?Yes 16:47:10 ACC The patient was administered the following blood thiners within the last 24 hours: ACCPlavix 16:47:41 Patient diabetic? No. 16:47:41 ----Pre-sedation anethsthesia assessment.---- 16:47:44 Previous problem with sedation/anesthesia? N/A ? 16:47:46 Previous problem with sedation/anesthesia? No ? 16:47:47 Snore? Yes 16:47:49 Sleep apnea? Yes 16:47:50 Deviated septum? No 16:47:52 Opens mouth fully? Yes 16:47:53 Sticks out tongue? Yes 16:47:58 Airway obstruction? No ? 16:48:01 Dentures? No ? 16:48:04 Pre procedure: right dorsailis pedis pulse 2+ Normal; easily identifiable; not easily obliterated 16:48:11 Modified Krzysztof's test Ulnar > 7 seconds. 16:48:14 Patient pain scale 0/10 ?. 16:48:30 IV patent on arrival in left forearm with 0.9% NaCl at 10ml/hr. 16:48:57 Lab Result : Creatinine 1.7 mg/dl 16:48:57 Lab Result : BUN 14 mg/dl 16:48:57 Lab Result : Hemoglobin 15.4 g/dl 16:49:10 Patient Height : 71 inches 16:49:19 Patient Weight : 241 lbs 16:49:37 Oxygen 2 l/min etCO2 Nasal cannula was administered by Salvador Oliva RN; used for procedure; 16:49:53 Lab results completed and on chart. 16:49:56 Right groin area was prepped with chlora-prep and draped in sterile fashion 16:49:57 Alarms reviewed by Tana Moore 16:49:57 - 16:49:58 Sharps counted by scrub and verified by Leatha 16:49:59 Physician arrived 16:50:00 --------ALL STOP TIME OUT------ 16:50:00 Final Timeout: patient, procedure, and site verified with staff and physician. All members of the team are in agreement. 16:50:02 Right groin site verified by team. 16:50:14 Maximum allowable Isovue 300 dose 77.7ml. Physician notified. (300ml fo r normal creatinines. For patients with creatinine of 1.7 or higher multiply weight(kg) x 5 divided by creatinine.) 16:50:43 Lidocaine 2% 20ml vial added to field was administered by Cristofer Melendez MD; for local anesthetic; 16:50:50 Heparin Flush Bag (1000units/500ml NS) 2 bags added to field was administered by Cristofer Melendez MD; used for procedure; 16:50:59 0.9% NaCl 100 ml/hr I.V. was administered by Salvador Oliva RN; Per physician; 16:51:20 Fire Safety Assessment: A--An alcohol-based skin anteseptic being used preoperatively., C--Open oxygen or nitrous oxide is being used., D--An ESU, laser, or fiber-optic light is being used. 16:51:26 Physical assessment completed. ASA score P 2 - A patient with mild systemic disease as per Cristofer Melendez MD. 16:51:31 Sedation plan: IV Moderate Sedation Medication:Versed, Fentanyl 16:52:08 Versed 2 mg I.V. was administered by Salvador Oliva RN; for sedation; 16:52:16 Fentanyl 100 mcg I.V. was administered by Salvador Oliva RN; for sedation; 16:53:12 Procedure started. 16:53:12 Full Disclosure recording started 16:53:15 Local anesthetic to right femoral artery with Lidocaine 2% by Cristofer Melendez MD.INITIAL ACCESS ONLY 16:53:25 A 5 Fr sheath was inserted into the Right Femoral artery 16:53:55 Vital chart was started 16:54:19 Use device set Femoral Dx 16:54:20 ACIST Syringe (49081) opened to sterile field. 16:54:20 Bag Decanter (2002S) opened to sterile field. 16:54:21 Medline Cath Pack ([id number]) opened to sterile field. 16:54:21 DIAGNOSTIC WIRE .035 260cm J wire (287860) opened to sterile field. 16:54:22 ACIST Hand Control (83734) opened to sterile field. 16:54:28 A MULTIPACK Pigtail 5 Fr catheter was advanced over the wire and used for LV Angiography. 16:54:32 LV gram done using GUNTER 16:54:36 Injector settings: Ml/sec: 10, Volume: 20, 16:54:42 EF : 50 % 16:54:44 Catheter removed. 16:54:48 ACIST Manifold (07005) opened to sterile field. 16:54:49 DIAGNOSTIC Multipack 5Fr catheter set (CY6789) opened to sterile field. 16:54:50 Tegaderm 4 x 4 (1626W) opened to sterile field. 16:54:50 SHEATH 5FR [place] (REH918) opened to sterile field. 16:55:05 A MULTIPACK JL 4.0 5Fr catheter was advanced over the wire and used for Left Coronary Angiography. 16:55:48 Catheter removed. 16:56:04 A MULTIPACK 3DRC 5Fr catheter was advanced over the wire and used for Internal mammary arteriography. TO LAD 16:56:20 GLIDE WIRE Super Stiff Angled 260cm (CB1546) opened to sterile field. 16:56:44 SS GILDE wire advanced. 16:56:47 Versed 1 mg I.V. was administered by Salvador Oliva RN; for sedation; 16:56:51 Fentanyl 50 mcg I.V. was administered by Salvador Oliva RN; for sedation; 16:58:59 A MULTIPACK 3DRC 5Fr catheter was advanced over the wire and used for SVG Angiography.TO OCCLUDED VESSEL? 16:59:06 Catheter removed. 16:59:38 A DIAGNOSTIC AR2 MOD 5 Fr catheter ([id number]) was advanced over the wire and used for SVG Angiography. TO CIRC 17:00:23 Catheter removed. 17:00:31 Use device set NORA PCI 17:00:33 SHEATH 6FR [place] (KOF443) opened to sterile field. 17:00:37 INFLATOR Merit [place] (BN6999) opened to sterile field. 17:00:39 CHOICE PT Extra Support 182cm wire ([id number]) opened to sterile field. 17:00:55 Sheath upsized to a 6 Fr Short. 17:01:08 Heparin Bolus 4000 units I.V. was administered by Salvador Oliva RN; for anticoagulation; verified with dr melendez 17:01:41 6 Fr AR 2.0 guide catheter was inserted over the wire 17:02:18 GUIDE 6FR AR 2.0 catheter (TV8AD88) opened to sterile field. 17:02:26 CHOICE PT ES wire advanced. 17:06:47 Place stent Inflation Number: 1 A KANE RX 2.5 x 08 stent ([id number]) was prepped and advanced across the Aorta Left -> Mid CX. The stent was deployed at 11 SUYAPA for 0:09 (min:sec). 17:08:13 Inflation number: 2 The stent balloon was then re-inflated across the Aorta Left -> Mid CX to 7 SUYAPA for 0:05 (min:sec). 17:08:21 Inflation number: 3 The stent balloon was then re-inflated across the Aorta Left -> Mid CX to 11 SUYAPA for 0:04 (min:sec). 17:08:41 Inflation number: 4 The stent balloon was then re-inflated across the Aorta Left -> Mid CX to 15 SUYAPA for 0:05 (min:sec). 17:09:05 Stent catheter was removed intact over wire. 17:09:05 Wire removed. 17:09:06 Guide catheter removed. 17:09:16 Sheath removed intact; hemostasis achieved with Exoseal to the Right Femoral artery. 17:09:17 Procedure ended.(Physican Out) 17:09:36 Fluoroscopy time 08.10 minutes. 17:09:41 Flurop Dose total: 1098 17:09:41 Fluoroscopy dose: 1098 mGy 17:09:52 Contrast amount:Isovue 300 164ml. 17:09:53 Sharps counted by scrub and verified by R.N. 17:09:54 Insertion/operative site no bleeding no hematoma. 17:09:57 Post-op/insertion site Right Femoral artery dressed using a 4 x 4 and Tegaderm. 17:10:00 Post right femoral artery:stable, clean and dry 17:10:02 Post Procedure Pulses reassessed and unchanged 17:10:04 Post-procedure physical assessment completed. ASA score P 2 - A patient with mild systemic disease as per Cristofer Melendez MD. 17:10:06 Post procedure rhythm: unchanged. 17:10:11 Estimated blood loss: 10 ml 17:10:13 Post procedure instruction explained to patient.Patient verbalizes understanding. 17:10:14 Patient needs reinforcement of post procedure teaching. 17:10:16 See physician's report for complete and final results. 17:11:44 Procedure type changed to Cath procedure, Diagnostic procedure, LHC, LH C w/Coronaries w/Grafts, Sedation Charges, Moderate Sedation up to 15 minutes, PCI procedure, AMI/SVG/PORT CRANE OPERATOR PTCA or Stent, SVG-BMS/JB Initial 17:11:49 Procedure Complication : No complications 17:11:56 EXOSEAL 6Fr (EX600) opened to sterile field. 17:12:57 Procedure and supply charges have been captured, reviewed, submitted an d are correct. 17:13:04 Vital chart was stopped 17:13:08 Report given to PCU. 17:13:14 Patient transfered to PCU with Bed. 17:13:32 Procedure ended. 17:13:32 Full Disclosure recording stopped 17:13:35 End room use (Document Last) Intervention Summary Intervention Notes Time ActionType Lesion and Equipment Used Action# Pressure Duration Attributes 17:06:47 Place stent Aorta Left KANE RX 2.5 x 1 11 00:09 -> Mid CX 08 stent ([id number]) 17:08:13 Reinflate Aorta Left KANE RX 2.5 x 2 7 00:05 stent -> Mid CX 08 stent balloon ([id number]) 17:08:21 Reinflate Aorta Left KANE RX 2.5 x 3 11 00:04 stent -> Mid CX 08 stent balloon ([id number]) 17:08:41 Reinflate Aorta Left KANE RX 2.5 x 4 15 00:05 stent -> Mid CX 08 stent balloon ([id number]) Device Usage Item Name Manufacture Quantity Catalog Number Hospital Part Current M inimal Lot# / Charge Number Stock Stock Serial# Code ACIST Syringe Acist 1 27010 563584 631778 010831 2 0 (04023) Medical Systems Inc Bag Decanter Microtek 1 418369 46660 883161 5 () Medical Inc. Medline Cath Medline 1 [id number] 901379 72315 873388 5 Pack ([id number]) DIAGNOSTIC St Renny 1 746821 250973 364749 300766 3 0 WIRE .035 260cm J wire (297761) ACIST Hand Acist 1 97177 647864 770576 274756 5 Control Medical (28397) Systems Inc MULTIPACK Cardinal 1 811350 5 Pigtail 5 Fr Health catheter ACIST Manifold Acist 1 30813 712709 714613 176775 5 (19588) Medical Systems Inc DIAGNOSTIC Cardinal 1 CI2387 078296 99608 526475 3 0 Multipack 5Fr Health catheter set (GH5933) Tegaderm 4 x 4 3M 1 1626W 952877 450822 890642 5 (1626W) SHEATH 5FR Terumo 1 PKJ732 248866 560621 660970 5 [place] (JWE341) MULTIPACK JL Cardinal 1 981196 5 4.0 5Fr Health catheter MULTIPACK 3DRC Cardinal 1 118682 5 5Fr catheter Health GLIDE WIRE Terumo 1 QD0865 272366 606833 124822 5 Super Stiff Angled 260cm (OU7340) DIAGNOSTIC AR2 Cardinal 1 [id number] 631411 481506 930323 2 0 MOD 5 Fr Health catheter (368645K) SHEATH 6FR Terumo 1 YKQ000 372788 689710 684168 4 0 [place] (DTB827) INFLATOR Merit Merit 1 YI5405 732680 756345 306106 1 5 ipsy (RW2266) CHOICE PT Charlotte 1 [id number] 116390 267633 753293 5 Extra Support Scientific 182cm wire ([id number]) GUIDE 6FR AR Medtronic 1 OC0XV35 011571 35867 259141 1 2.0 catheter (JN9FC39) KANE RX 2.5 x Medtronic 1 [id number] 424124 0815566 246394 5 [id number] 08 stent ([id number]) EXOSEAL 6Fr Cardinal 1 EX600 150184 653939 317626 1 0 (EX600) Health Signature Audit Buhl Stage Time Signature Unsigned Intra-Procedure 11/14/2018 July 5:13:46 PM Counts RT(R) Signatures Monitor : July Signature : Counts RT Date : Time : [place] [address] [place] [address]
--- NOTE | ~2018-11-13 | OP ---
PATIENT NAME: LORNA HOLMAN MEDICAL RECORD: [id number] :65 LOCATION:D.M2 D.2123 ADMISSION DATE:11/14/18 SURGEON: JENNIFER VICK MD DATE OF OPERATION: 11/14/2018 PROCEDURES: 1. PTCA stent left circumflex through the vein graft. 2. Left heart catheterization. 3. Selective coronary angiography. 4. Vein graft angiography. 5. BUENO angiography. 6. Left ventriculogram. INDICATION: Angina and coronary artery disease. PROCEDURE IN DETAIL: After informed consent was obtained and after a detailed description of risks, benefits as well as alternative therapies, the patient elected to proceed with angiogram and angioplasty. The right femoral area was prepped and draped in normal sterile fashion. Right femoral artery was cannulated via modified Seldinger technique with the placement of 6-Chilean sheath. All catheters exchanged through this sheath. FINDINGS: Left ventriculogram was performed in standard 30-degree GUNTER view, reveals good cardiac wall motion throughout all segments, overall ejection fraction estimated at 55%. SELECTIVE CORONARY ANGIOGRAPHY: 1. Left main is with no significant angiographic disease. 2. Left anterior descending is closed. 3. Left circumflex is closed. 4. Right coronary artery is closed. 5. Vein graft to the right coronary artery is closed. 6. BUENO to the LAD is patent. The LAD has a 70+% stenosis after the patent BUENO. 7. The left vein graft to the ramus intermedius is patent. Distal ramus intermedius is widely patent. 8. Vein graft to the obtuse marginal circumflex is patent; however, there is a 90% stenosis after that drop down. PTCA STENT OF THE LEFT CIRCUMFLEX THROUGH THE PATENT VEIN GRAFT: The stent used was a 2.5 x 8 mm Aleksandar. Result was 0% residual stenosis. OVERALL IMPRESSION: Successful percutaneous transluminal coronary angioplasty stent of the left circumflex through the patent vein graft going from 90% initial stenosis to 0% residual. TRANSINT:[id number] Voice Confirmation ID: [id number] DOCUMENT ID: [id number] OPERATIVE REPORT [id number] LORNA HOLMAN JENNIFER VICK MD CC: [id number] DICTATION DATE: 11/14/181731 PROTECTIVE SIGNAL INSTALLER HELPER: 11/15/18 0117 DIS IN 11/14/18 [place] [id number] [place] [id number]
[~2018-11-13 20:35] MED LIST changes: +ASPIRIN325 MG PO; +NITRO-DUR0.6 MG TRANSDERM
[2018-11-13 21:02] VITALS: BP 163/99
[2018-11-13 21:16] LABS: BASOPHILS 0.3 % (0-2); EOSINOPHILS 4.6 % (0-7); HEMATOCRIT 43.4 % (42.0-54.0); HEMOGLOBIN 15.4 g/dL (13.5-17.5); IMMATURE GRANULOCYTES 0.2 % (0-5); LYMPHOCYTES 24.3 % (15-50); MCH 31.3 pg (26.0-34.0); MCHC 35.5 g/dL (31.0-37.0); MCV 88.2 fL (80.0-100.0); MEAN PLATELET VOLUME 9.7 fL (7.4-10.4); MONOCYTES 8.7 % (2-11); NEUTROPHILS 61.9 % (40-80); PLATELET COUNT 135 10x3/uL (130-400); RBC 4.92 10x6/uL (4.20-6.10); RDW 13.9 % (11.5-14.5); WBC 6.1 10x3/uL (4.8-10.8)
[2018-11-13 21:27] LABS: APTT 25.4 SECONDS (22.8-39.4); INR 1.2 (0.85-1.17); PROTIME 14.7 SECONDS (11.6-15.0)
[2018-11-13 21:35] LABS: ALBUMIN 3.8 g/dL (3.4-5.0); ALKALINE PHOSPHATASE 119 U/L (46-116); ALT (SGPT) 43 U/L (10-68); BILIRUBIN - TOTAL 0.58 mg/dL (0.2-1.3); CALC OSMOLALITY 286 mosm/kg (275-300); CALCIUM 8.2 mg/dL (8.5-10.1); CARBON DIOXIDE 25.4 mmol/L (21.0-32.0); CHLORIDE - SERUM 107 mmol/L (98-107); CREATININE - SERUM 1.7 mg/dL (0.6-1.3); GLUCOSE 110 mg/dL (74-106); POTASSIUM - SERUM 3.5 mmol/L (3.5-5.1); PROTEIN - SERUM 6.9 g/dL (6.4-8.2); SODIUM 143 mmol/L (136-145); UREA NITROGEN 14 mg/dL (7-18); eGFR NON AFRICAN AMERICAN 45 mL/min (90-120)
[2018-11-13 21:46] LABS: CKMB 2.3 U/L (0.0-3.6); CREATINE KINASE 143 UL (21-232); MAGNESIUM - SERUM 2.1 mg/dL (1.8-2.4); TROPONIN-I 0.028 ng/mL (0.000-0.060)
[2018-11-13 22:01] VITALS: BP 143/93
[2018-11-13 22:13] VITALS: BP 145/88
[2018-11-13 23:01] VITALS: BP 134/86
[2018-11-14] VITALS (7 sets, daily range): BP systolic 127–155; BP diastolic 78–97; Ht 180.3 cm; Wt 111.8 kg
[2018-11-14] MEDS ORDERED: TERAZOSIN HCL2 MG PO (02:08)
[2018-11-14] MEDS ORDERED: RANEXA1000 MG PO (02:10)
--- NOTE | 2018-11-14 02:23 | NUR ---
PT ARRIVED VIA W/C FORM ER AT 0140 HRS. PT DENIED ANY DISCOMFORT. IV TO LFA WITH NS AT 125CC/HR. IV PATENT. VSS. SR WITH OCC PVC'S PER CM HR 62. LUNGS ESSENTIALLY CTA. ADMISSION ASSESSMENT, HISTORY AND HOME MED LIST COMPLETED. EXPLAINED RATIONALE FOR NPO UNTIL SEEN BY DR VICK. PT STATED UNDERSTANDING. NON SLIP SOCKS ON PT. SR UP X1, CALL LIGHT WITHIN REACH.
[2018-11-14 04:08] LABS: CKMB 1.8 U/L (0.0-3.6); CREATINE KINASE 113 UL (21-232)
--- NOTE | 2018-11-14 04:27 | NUR ---
PT AWAKE; DENIES ANY DISCOMFORT. CALL LIGHT WITHIN REACH.
--- NOTE | 2018-11-14 06:42 | NUR ---
VSS THROUGHOUT NIGHT. SR WITH OCC PVC'S PER CM PT DENIED ANY DISCOMFORT. NEEDS MET; WILL CONTINUE TO MONITOR.
--- NOTE | 2018-11-14 07:17 | NUR ---
ROUNDING DONE WITH WITH PATIENT BEING NPO UNTIL SEEN BY AIR CONDITIONING TECHNICIAN. ON HEART MONITOR SHOWING SR W OCC PVC. ON ROOM AIR. LEFT FA PIV SEEN WITH NS INFUSING AT 125 CC/HR. DENIES NEEDS OR CHEST PAIN AT PRESENT TIME. KURT HALE.
--- NOTE | 2018-11-14 08:42 | NUR ---
BREAKFAST TRAY ORDERED FOR PATIENT. WILL MAKE NPO AFTER HE EATS.
[2018-11-14 10:12] LABS: BASOPHILS 0.5 % (0-2); EOSINOPHILS 4.8 % (0-7); HEMATOCRIT 43.7 % (42.0-54.0); HEMOGLOBIN 15.2 g/dL (13.5-17.5); IMMATURE GRANULOCYTES 0.4 % (0-5); LYMPHOCYTES 24.5 % (15-50); MCH 31.4 pg (26.0-34.0); MCHC 34.8 g/dL (31.0-37.0); MONOCYTES 7.2 % (2-11); NEUTROPHILS 62.6 % (40-80); PLATELET COUNT 127 10x3/uL (130-400); RBC 4.84 10x6/uL (4.20-6.10); RDW 14.3 % (11.5-14.5); WBC 5.7 10x3/uL (4.8-10.8)
[2018-11-14 10:21] LABS: MCV 90.3 fL (80.0-100.0)
[2018-11-14 10:34] LABS: CALC OSMOLALITY 291 mosm/kg (275-300); CALCIUM 8.2 mg/dL (8.5-10.1); CHLORIDE - SERUM 111 mmol/L (98-107); CREATININE - SERUM 1.7 mg/dL (0.6-1.3); GLUCOSE 104 mg/dL (74-106); POTASSIUM - SERUM 4.3 mmol/L (3.5-5.1); SODIUM 146 mmol/L (136-145); UREA NITROGEN 14 mg/dL (7-18); eGFR NON AFRICAN AMERICAN 45 mL/min (90-120)
--- NOTE | 2018-11-14 10:38 | NUR ---
NPO PAST BREAKFAST FOR HEART CATH. PATIENT HAS USED THE STERILE WIPES. DENIES ANY NEEDS AT THIS TIME.
--- NOTE | 2018-11-14 12:06 | NUR ---
STILL AWAITING HEART CATH, NPO.
--- NOTE | 2018-11-14 16:28 | NUR ---
TO AUTOMOTIVE PARTS COUNTER ASSISTANT VIA BED.
--- NOTE | 2018-11-14 17:30 | NUR ---
RETURNS FROM DUMP MOTORMAN RECOVERY WITH DRESSING C/D/I TO RIGHT GROIN. TO LAY FLAT X 4 HOURS. FAMILY IS AT [facility]. WILL MONITOR
--- NOTE | 2018-11-14 19:30 | NUR ---
RESUMED CARE OF PT, LYING IN BED RESPIRATIONS EVEN AND UNLABORED ON 2LPM VIA NC. 64 SR WITH PVCS ON TELEMETRY. RIGHT GROIN C/D/I, PEDAL PULSE PALPABLE. LEFT FOREARM INFUSING NS @ 125. CALL LIGHT IN REACH. SEE NURSE ASSESSMENT.
--- NOTE | 2018-11-14 21:47 | NUR ---
IV REMOVED WITH TIP INTACT, DRESSED AND ASSISSTED OUT TO CAR.
== END 2018-11-14 21:48 | disposition home or self-care (01) ==
LOC: D.ER 20:35 → D.M2 11-14 01:02 → OBSVTIME 11-14 01:02 → D.M2 11-14 21:48
PROVIDERS: Emergency Medicine; ADMIT Internal Medicine Interventional Cardiology; ATTEND Internal Medicine Interventional Cardiology
DX: I25.110 Atherosclerotic heart disease of native coronary artery with unstable angina pectoris (principal); I10 Essential (primary) hypertension; K21.9 Gastro-esophageal reflux disease without esophagitis; Z87.891 Personal history of nicotine dependence; E78.5 Hyperlipidemia, unspecified

== ENCOUNTER 2019-04-05 14:31 | Inpatient (IN) | payer MEDICAID ==
[~2019-04-05] VITALS: Ht 180.3 cm; Wt 115.9 kg
[~2019-04-05 14:31] MED LIST changes: +RANEXA1000 MG PO
[2019-04-05] MEDS ORDERED: ISOSORBIDE MONO60 M1 PO ×2 (14:43→19:49)
[2019-04-05] MEDS ORDERED: BAYER CHEWABLE81 MG PO (14:44)
[2019-04-05] MEDS ORDERED: ZANTAC300 MG PO (14:45)
[2019-04-05] MEDS ORDERED: NASONEX NASAL S17 GM NS (14:46)
[2019-04-05] MEDS ORDERED: COREG6.25 MG (14:47)
[2019-04-05 15:12] LABS: BASOPHILS 0.2 % (0-2); EOSINOPHILS 3.3 % (0-7); HEMATOCRIT 43.5 % (42.0-54.0); HEMOGLOBIN 15.7 g/dL (13.5-17.5); IMMATURE GRANULOCYTES 0.4 % (0-5); LYMPHOCYTES 20.8 % (15-50); MCH 32.1 pg (26.0-34.0); MCHC 36.1 g/dL (31.0-37.0); MEAN PLATELET VOLUME 9.1 fL (7.4-10.4); MONOCYTES 10.8 % (2-11); NEUTROPHILS 64.5 % (40-80); PLATELET COUNT 138 10x3/uL (130-400); RBC 4.89 10x6/uL (4.20-6.10); RDW 13.7 % (11.5-14.5); WBC 5.5 10x3/uL (4.8-10.8)
[2019-04-05 15:23] LABS: APTT 27.6 SECONDS (22.8-39.4); INR 1.23 (0.85-1.17)
[2019-04-05 15:25] VITALS: BP 149/94
--- NOTE | 2019-04-05 15:25 | NUR ---
SPOKE WITH TREATING PROVIDER Pretty SANDERS, PT DENIES CP CURRENTLY, NO SL NITRO GIVEN AT THIS TIME. PT INSTRUCTED TO NOTIFY STAFF IF HE BEGINS HAVING CP. CALL LIGHT IN REACH, PT VOICED UNDERSTANDING.
[2019-04-05 15:29] LABS: ALBUMIN 3.9 g/dL (3.4-5.0); ALKALINE PHOSPHATASE 124 U/L (46-116); ALT (SGPT) 28 U/L (10-68); BILIRUBIN - TOTAL 0.85 mg/dL (0.2-1.3); CALC OSMOLALITY 282 mosm/kg (275-300); CALCIUM 8.2 mg/dL (8.5-10.1); CHLORIDE - SERUM 106 mmol/L (98-107); CREATININE - SERUM 1.8 mg/dL (0.6-1.3); GLUCOSE 89 mg/dL (74-106); SODIUM 141 mmol/L (136-145); UREA NITROGEN 21 mg/dL (7-18); eGFR NON AFRICAN AMERICAN 42 mL/min (90-120)
[2019-04-05 15:41] LABS: CKMB 1.6 U/L (0.0-3.6); CREATINE KINASE 97 UL (21-232)
[2019-04-05 15:45] LABS: TROPONIN-I < 0.017 ng/mL (0.000-0.060)
[2019-04-05 16:00] VITALS: BP 140/100
[2019-04-05 17:00] VITALS: BP 136/100
[2019-04-05 18:00] VITALS: BP 135/92
--- NOTE | 2019-04-05 19:35 | NUR ---
PATIENT ARRIVED FROM ER. PATIENT IS ALERT AND ORIENTED, RESTING COMFORTABLY IN BED. RESPIRATIONS ARE EVEN AND UNLABORED. NO S/S OF DISTRESS. NO C/O PAIN. CALL LIGHT WITHIN REACH. WILL CPOC.
[2019-04-05] MEDS ORDERED: COREG6.25 MG PO (19:48)
--- NOTE | 2019-04-05 19:59 | NUR ---
UPDATED PATIENT MED REC. PATIENT IS UNCERTAIN IF HE STILL TAKES THE METOPROLOL OR LISINOPRIL. REMOVED MEDICATIONS FROM MED REC.
[2019-04-05 20:26] VITALS: BP 142/89
[2019-04-05 21:22] VITALS: BP 142/89; BMI 35.4
[2019-04-05 21:27] LABS: CKMB 1.3 U/L (0.0-3.6); CREATINE KINASE 75 UL (21-232); TROPONIN-I 0.023 ng/mL (0.000-0.060)
[2019-04-06] VITALS: BP 154/94
[2019-04-06 04:00] VITALS: BP 150/89
[2019-04-06 06:07] LABS: BASOPHILS 0.4 % (0-2); EOSINOPHILS 4.8 % (0-7); HEMATOCRIT 42.5 % (42.0-54.0); HEMOGLOBIN 15.1 g/dL (13.5-17.5); IMMATURE GRANULOCYTES 0.4 % (0-5); LYMPHOCYTES 29.1 % (15-50); MCH 31.7 pg (26.0-34.0); MCHC 35.5 g/dL (31.0-37.0); MCV 89.1 fL (80.0-100.0); MEAN PLATELET VOLUME 9.5 fL (7.4-10.4); MONOCYTES 9.5 % (2-11); NEUTROPHILS 55.8 % (40-80); PLATELET COUNT 124 10x3/uL (130-400); RBC 4.77 10x6/uL (4.20-6.10); RDW 13.9 % (11.5-14.5); WBC 5.5 10x3/uL (4.8-10.8)
[2019-04-06 06:39] LABS: MAGNESIUM - SERUM 2.1 mg/dL (1.8-2.4); PHOSPHOROUS 4.3 mg/dL (2.5-4.9)
--- NOTE | 2019-04-06 07:15 | NUR ---
RECEIVED PT IN BED AROUSES EASILY RESP NOTED WITH SOME SLEEP APNEA PT DENIES ANY NEEDS SKIN W/D COLOR WNL NAD NOTED
[2019-04-06 08:49] VITALS: BP 147/86
--- NOTE | 2019-04-06 10:10 | NUR ---
PT REFUESE TO WEAR SCDs PT IS AD MYLES
[2019-04-06 12:45] VITALS: Ht 180.3 cm; Wt 115.9 kg
[2019-04-06 12:54] VITALS: BP 153/90
[2019-04-06 17:43] VITALS: BP 131/81
--- NOTE | 2019-04-06 19:28 | NUR ---
RESUMING PATIENT CARE. PATIENT IS ALERT AND ORIENTED, RESTING COMFORTABLY IN BED. RESPIRATIONS ARE EVEN AND UNLABORED. NO S/S OF DISTRESS. NO C/O PAIN. CALL LIGHT WITHIN REACH. WILL CPOC.
[2019-04-06 20:00] VITALS: BP 148/84
[2019-04-06 21:11] LABS: CKMB 1.7 U/L (0.0-3.6); CREATINE KINASE 81 UL (21-232)
[2019-04-06 21:16] LABS: TROPONIN-I < 0.017 ng/mL (0.000-0.060)
[2019-04-07] VITALS: BP 123/88
[2019-04-07 04:00] VITALS: BP 109/82
[2019-04-07 04:27] LABS: HEMATOCRIT 41.4 % (42.0-54.0); HEMOGLOBIN 14.6 g/dL (13.5-17.5); MCH 31.6 pg (26.0-34.0); MCHC 35.3 g/dL (31.0-37.0); MCV 89.6 fL (80.0-100.0); PLATELET COUNT 127 10x3/uL (130-400); RBC 4.62 10x6/uL (4.20-6.10); RDW 14.1 % (11.5-14.5); WBC 5.7 10x3/uL (4.8-10.8)
[2019-04-07 04:35] LABS: ANION GAP 12.6 mmol/L (8-16); CALCIUM 7.9 mg/dL (8.5-10.1); CARBON DIOXIDE 24.3 mmol/L (21.0-32.0); CREATININE - SERUM 1.9 mg/dL (0.6-1.3); POTASSIUM - SERUM 3.9 mmol/L (3.5-5.1)
[2019-04-07 04:51] LABS: LYMPHOCYTES 30 % (15-50); MONOCYTES 10 % (2-11); NEUTROPHILS 60 % (40-80); PLATELET ESTIMATE NORMAL
--- NOTE | 2019-04-07 07:15 | NUR ---
RECEIVED PT IN BED EYES CLOSED RESP UNLABORED NAD NOTED
[2019-04-07 08:21] VITALS: BP 167/98
[2019-04-07 12:09] VITALS: BP 152/83
--- NOTE | 2019-04-07 15:47 | MORECARE ---
CASE MANAGEMENT DISCHARGE SUMMARY PATIENT: LORNA HOLMAN UNIT: [id number] ADM DATE: 04/06/19 AGE: 54 : 65 SEX: M ROOM/BED: D.2907 AUTHOR: JOSE G INTERIANO PHYSICIAN: REFERRING PHYSICIAN: GENOVEVA CLINTON MD DATE OF SERVICE: 04/07/19 Discharge Plan Patient Name: LORNA HOLMAN Facility: [facility]:[place] : 1965 Planned Disposition: Home Anticipated Discharge Date: 04/07/19 Discharge Date: Expected LOS: 1 Initial Reviewer: [email or web address] Initial Review Date: 04/07/2019 Generated: 04/07/19 4:46 pm Comments DCP- Discharge Planning Updated by [email or web address]: Alhaji Gottlieb on 04/07/19 2:[address] Patient Name: LORNA HOLMAN Admission Status: ER Accout number: [id number] Admission Date: 04-06-2019 : 1965 Admission Diagnosis:DIZZINESS AND GIDDINESS Attending: GENOVEVA CLINTON Current LOS: 1 Anticipated DC Date: 04-07-2019 Planned Disposition: Home Primary Insurance: MEDICAID [place] Discharge Planning Comments: CM MET WITH PT IN ROOM TO DISCUSS DISCHARGE PLANNING AND NEEDS. LORNA HOLMAN provided verbal consent to discuss current and ongoing needs with/in the presence of: SPOUSE, EMILY. PT REPORTS LIVING AT HOME INDEPENDENTLY WITH HER HIS . PT HAS NO MEDICAL EQUIPMENT AND NO OUTSIDE SERVICES ASSISTING IN THE HOME. CM DISCUSSED AVAILABILITY OF HOME HEALTH, REHAB SERVICES AND MEDICAL EQUIPMENT. PT DENIES DISCHARGE NEEDS, REPORTS HIS WILL PICK HIM UP FOR DISCHARGE HOME. Manager Construction: Alhaji Gottlieb DCPIA - Discharge Planning Initial Assessment Updated by [email or web address]: Alhaji Gottlieb on 04/07/19 3:42 pm * Is the patient Alert and Oriented? Yes * How many steps to enter\exit or inside your home? * PCP DR. FINK * Pharmacy [facility] [address] * Preadmission Environment Home with Family * ADLs Independent * Equipment None * Other Equipment NO MEDICAL EQUIPMENT PROVIDER PREFERENCE * List name and contact numbers for known caregivers / representatives who currently or will assist patient after discharge: EMILY HOLMAN, SPOUSE, * Verbal permission to speak to the caregivers and representatives has been obtained from the patient. Yes * Community resources currently utilized None * Please name any agencies selected above. NONE * Additional services required to return to the preadmission environment? No * Can the patient safely return to the preadmission environment? Yes * Has this patient been hospitalized within the prior 30 days at any hospital? No Patient Name: LORNA HOLMAN Page [id number] at 1547 All edits/amendments must be made on the electronic document DICTATION DATE: 04/07/19 1546 BLOOD BANK BUSINESS MANAGER: DENISE 04/07/19 1546 RPT#: [id number] DC DATE: STATUS: ADM IN [facility] [address] [place] [address] END OF REPORT
--- NOTE | 2019-04-07 16:10 | NUR ---
REVIEWED DISCHARGE INSTRUCTIONS WITH PT STATES UNDERSTANDING COPY GIVEN DCD SALINE LOCK TO RAC WITH IV CATHETER INTACT SITE FREE OF REDNESS OR EDEMA PT DISCHARGED HOME LEFT UNIT IN STABLE CONDITION WITH ALL PERSONAL BELONGINGS VIA W/C
[2019-04-08] MEDS ORDERED: ADALAT CC90 MG PO (09:04)
== END 2019-04-07 16:10 | disposition home or self-care (01) | DRG 305 ==
LOC: D.ER 14:31 → D.M2 18:22 → OBSVTIME 18:30 → D.M2 04-06 14:22
PROVIDERS: Family Medicine; ADMIT Internal Medicine Nephrology; ATTEND Internal Medicine Nephrology
DX: I10 Essential (primary) hypertension (principal); F17.223 Nicotine dependence, chewing tobacco, with withdrawal; E78.5 Hyperlipidemia, unspecified; E11.9 Type 2 diabetes mellitus without complications; I25.10 Atherosclerotic heart disease of native coronary artery without angina pectoris; K21.9 Gastro-esophageal reflux disease without esophagitis; I48.91 Unspecified atrial fibrillation; E03.9 Hypothyroidism, unspecified

== ENCOUNTER 2019-04-07 21:18 | Observation (INO) | payer MEDICAID ==
[~2019-04-07] VITALS: Ht 180.3 cm; Wt 11.4 kg
--- NOTE | ~2019-04-07 | DS ---
PATIENT:LORNA RECINOS :65 MEDICAL RECORD: [id number] DISCHARGE SUMMARY ADMISSION DATE: 04/07/19 DISCHARGE DATE: 04/08/19 DISCHARGE DIAGNOSES: 1. Uncontrolled hypertension. 2. Angina. 3. Coronary artery disease. 4. Previous coronary bypass graft surgery. 5. Previous multivessel percutaneous transluminal coronary angioplasty and stent. 6. Hypertension. 7. Hyperlipidemia. HOSPITAL COURSE: Mr. Recinos presents hours after discharge with uncontrolled hypertension and angina. He has no ST-T changes on his EKG. His troponins are normal. He had the addition of Procardia-XL 90 to his blood pressure regimen. Will follow up with [facility] on Wednesday to see if this addition to his regimen will control his blood pressure and relieve his symptomatology. TRANSINT:[id number] Voice Confirmation ID: [id number] DOCUMENT ID: [id number] JENNIFER VICK MD CC: [id number] DICTATION DATE: 04/08/19 1059 ASSOCIATE ENGINEER: 04/08/193 DIS IN 04/08/19 [facility] [address] [place] [address]
--- NOTE | ~2019-04-07 | HP ---
PATIENT: LORNA RECINOS MEDICAL RECORD: [id number] ACCOUNT: [id number] LOCATION:[address] : 65 ADMISSION DATE: 04/07/19 PCP: KATIE FINK MD HISTORY AND PHYSICAL EXAMINATION ADMITTING DIAGNOSES: 1. Angina. 2. Hypertension, uncontrolled. 3. Hyperlipidemia. 4. Coronary artery disease. 5. Status post coronary artery bypass graft surgery. 6. Status post multivessel percutaneous transluminal coronary angioplasty stent. HISTORY OF PRESENT ILLNESS: Mr. Recinos was just in the hospital with difficult to control blood pressure and angina. He returned within hours after discharge with systolic blood pressures in the 160-180 range. He is currently on carvedilol 6.25 b.i.d., Imdur, Ranexa. He is as well on aspirin, Plavix and Lipitor. His systolic blood pressure has been running since admission in the 150-180 range. PHYSICAL EXAMINATION: GENERAL APPEARANCE: Well-nourished, well-developed, appears stated age. Level of distress, comfortable. PSYCHIATRIC: Mental status, alert, normal affect. Orientation, oriented to time, place and person. EYES: Lids and conjunctiva, noninjected. No discharge, no pallor. ENT: Lips, teeth, gums, normal dentition. Oropharynx, no cyanosis, no pallor. NECK: Carotid arteries, bilateral normal upstroke, no bruits, no thrills. JUGULAR VEINS: No jugular venous pressure or distention. CERVICAL LYMPH NODES: Nontender, nonenlarged. THYROID: Not enlarged. Nontender. No nodules. LUNGS: Respiratory effort, unlabored. CHEST: Normal curvature. No thoracic deformity. No chest wall tenderness. Percussion, resonant. Auscultation, clear. No wheezes, no rales, no rhonchi. CARDIOVASCULAR: Precordial exam, nondisplaced. No heaves or pericardial thrills. Rate and rhythm, regular. Heart sounds, normal S1, normal S2. No S3, no gallop, no rub. Systolic murmur, not heard. Diastolic murmur, not heard. EXTREMITIES: No cyanosis, no edema. Peripheral pulses, full and equal in all extremities, except as noted. No bruits appreciated. ABDOMEN: Soft, nondistended. Normal aorta. No bruit. Nontender. No masses. Liver, nontender, no hepatomegaly. Spleen, nontender, no splenomegaly. MUSCULOSKELETAL: No joint tenderness. No joint swelling. No erythema. NEUROLOGICAL: Normal gait, normal strength, normal tone. SKIN: Warm and dry. ASSESSMENT AND PLAN: EKG is with no changes. Troponin is normal. Last cardiac intervention was in November, did not think he needs to have repeat coronary angiography at this time. He needs optimal medical management. We will add a calcium channel marco antonio in the form of Procardia-XL 90 to his blood pressure medication regimen. Hopefully, this will lower the blood pressure. TRANSINT:[id number] Voice Confirmation ID: [id number] DOCUMENT ID: [id number] HISTORY AND PHYSICAL [id number] LORNA RECINOS JEFFREY MD CC: [id number] DICTATION DATE: 04/08/19 1059 CROP RANCH HAND: 04/08/19 1138 DIS IN 04/08/19 [facility] [address] [place] [address]
[~2019-04-07 21:18] MED LIST changes: +BAYER CHEWABLE81 MG PO; +COREG6.25 MG; +COREG6.25 MG PO; +ISOSORBIDE MONO60 M1 PO; +NASONEX NASAL S17 GM NS; +ZANTAC300 MG PO
[2019-04-07 21:49] LABS: BASOPHILS 0.7 % (0-2); HEMATOCRIT 44.1 % (42.0-54.0); HEMOGLOBIN 15.5 g/dL (13.5-17.5); IMMATURE GRANULOCYTES 0.3 % (0-5); LYMPHOCYTES 26.3 % (15-50); MCH 31.5 pg (26.0-34.0); MCHC 35.1 g/dL (31.0-37.0); MCV 89.6 fL (80.0-100.0); MEAN PLATELET VOLUME 9.3 fL (7.4-10.4); MONOCYTES 10.6 % (2-11); NEUTROPHILS 58.1 % (40-80); PLATELET COUNT 141 10x3/uL (130-400); RBC 4.92 10x6/uL (4.20-6.10); RDW 13.8 % (11.5-14.5)
[2019-04-07 21:58] LABS: APTT 22.7 SECONDS (22.8-39.4); INR 1.19 (0.85-1.17); PROTIME 14.6 SECONDS (11.6-15.0)
[2019-04-07 22:02] VITALS: BP 155/102
[2019-04-07 22:04] LABS: ALKALINE PHOSPHATASE 118 U/L (46-116); ALT (SGPT) 29 U/L (10-68); BILIRUBIN - TOTAL 0.71 mg/dL (0.2-1.3); CALC OSMOLALITY 282 mosm/kg (275-300); CALCIUM 8.1 mg/dL (8.5-10.1); CARBON DIOXIDE 24.7 mmol/L (21.0-32.0); CHLORIDE - SERUM 107 mmol/L (98-107); CREATININE - SERUM 1.9 mg/dL (0.6-1.3); GLUCOSE 85 mg/dL (74-106); POTASSIUM - SERUM 3.8 mmol/L (3.5-5.1); PROTEIN - SERUM 6.9 g/dL (6.4-8.2); SODIUM 141 mmol/L (136-145); UREA NITROGEN 22 mg/dL (7-18); eGFR NON AFRICAN AMERICAN 39 mL/min (90-120)
[2019-04-07 22:16] LABS: CKMB 2.1 U/L (0.0-3.6); CREATINE KINASE 146 UL (21-232); MAGNESIUM - SERUM 2.2 mg/dL (1.8-2.4); TROPONIN-I < 0.017 ng/mL (0.000-0.060)
--- NOTE | 2019-04-07 22:31 | NUR ---
PT AMBULATED TO RESTROOM INDEPENDENTLY.
--- NOTE | 2019-04-08 00:15 | NUR ---
ADMIT TO ROOM 2111 FROM ER. ALERT/ORIENTED. PT PREVIOUSLY HERE YESTERDAY FOR CHEST PAIN, NOW BACK FOR ELEVATED BP AND CHEST PAIN EPISODE. WILL BE NPO UNTIL SEEN BY NURSE CLINICAL IN AM. ADMISSION ASSESSMENT AND HISTORY COMPLETED. TELEMETRY INITIATED. DENIES ACTIVE CHEST PAIN. BP IS STILL ELEVATED, BUT PT WAS GIVEN SEVERAL THINGS IN ER. WILL MONITOR AND SEE IF BP COMES DOWN.
[2019-04-08 01:24] VITALS: BP 187/103; Ht 180.3 cm; Wt 11.4 kg
[2019-04-08 04:00] VITALS: BP 156/108
[2019-04-08 04:37] LABS: BASOPHILS 0.4 % (0-2); EOSINOPHILS 4.2 % (0-7); HEMATOCRIT 44.1 % (42.0-54.0); HEMOGLOBIN 15.6 g/dL (13.5-17.5); IMMATURE GRANULOCYTES 0.5 % (0-5); LYMPHOCYTES 27.5 % (15-50); MCH 31.6 pg (26.0-34.0); MCHC 35.4 g/dL (31.0-37.0); MCV 89.5 fL (80.0-100.0); MEAN PLATELET VOLUME 9.4 fL (7.4-10.4); MONOCYTES 10.5 % (2-11); NEUTROPHILS 56.9 % (40-80); PLATELET COUNT 134 10x3/uL (130-400); RBC 4.93 10x6/uL (4.20-6.10); RDW 13.8 % (11.5-14.5); WBC 5.7 10x3/uL (4.8-10.8)
[2019-04-08 05:05] LABS: ALBUMIN 3.6 g/dL (3.4-5.0); ALKALINE PHOSPHATASE 102 U/L (46-116); ALT (SGPT) 30 U/L (10-68); BILIRUBIN - TOTAL 0.81 mg/dL (0.2-1.3); CALC OSMOLALITY 285 mosm/kg (275-300); CALCIUM 8.3 mg/dL (8.5-10.1); CHLORIDE - SERUM 108 mmol/L (98-107); CKMB 1.8 U/L (0.0-3.6); CREATINE KINASE 113 UL (21-232); CREATININE - SERUM 1.8 mg/dL (0.6-1.3); GLUCOSE 92 mg/dL (74-106); POTASSIUM - SERUM 3.9 mmol/L (3.5-5.1); PROTEIN - SERUM 6.4 g/dL (6.4-8.2); SODIUM 142 mmol/L (136-145); TROPONIN-I 0.023 ng/mL (0.000-0.060); UREA NITROGEN 20 mg/dL (7-18); eGFR NON AFRICAN AMERICAN 42 mL/min (90-120)
--- NOTE | 2019-04-08 07:53 | NUR ---
PT AWAKE AND ORIENTED, C/O DRIED BLOOD IN HIS NOSE. RADHA GALVIN ASSISTED WITH GIVING HIM CLEANING MATERIALS. NO COMPLAINTS/CONCERNS, QUESTIONS/COMMENTS, AT THIS TIME. CL IN REACH, SRX2.
[2019-04-08 08:28] VITALS: BP 145/85
[2019-04-08] MEDS ORDERED: ADALAT CC90 MG PO (09:04)
--- NOTE | 2019-04-08 10:15 | NUR ---
PT AMBULATED OUTSIDE WITH TECH, REFUSED WHEELCAHIR.
--- NOTE | 2019-04-10 08:21 | MORECARE ---
CASE MANAGEMENT DISCHARGE SUMMARY PATIENT: LORNA HOLMAN UNIT: [id number] ADM DATE: 04/07/19 AGE: 54 : 65 SEX: M ROOM/BED: D.2112 AUTHOR: JOSE G INTERIANO PHYSICIAN: REFERRING PHYSICIAN: JENNIFER VICK MD DATE OF SERVICE: 04/10/19 Discharge Plan Patient Name: LORNA HOLMAN [facility] [facility] 1965 Planned Disposition: Home Anticipated Discharge Date: 04/08/19 Discharge Date: 04/08/2019 Expected LOS: 1 Initial Reviewer: [email or web address] Initial Review Date: 04/10/2019 Generated: 04/10/19 9:20 am Patient Name: LORNA HOLMAN Page [id number] at 0821 All edits/amendments must be made on the electronic document DICTATION DATE: 04/10/19819 BROACH GRINDER: DENISE 04/10/19819 RPT#: [id number] DC DATE:04/08/19 STATUS: DIS IN [facility] [address] [place] [address] END OF REPORT
== END 2019-04-08 10:15 | disposition home or self-care (01) ==
LOC: D.ER 21:18 → OBSVTIME 22:25 → D.M2 22:25
PROVIDERS: Family Medicine; ADMIT Internal Medicine Interventional Cardiology; ATTEND Internal Medicine Interventional Cardiology
DX: I10 Essential (primary) hypertension (principal); I25.119 Atherosclerotic heart disease of native coronary artery with unspecified angina pectoris; E11.9 Type 2 diabetes mellitus without complications; E78.5 Hyperlipidemia, unspecified; F17.213 Nicotine dependence, cigarettes, with withdrawal; K21.9 Gastro-esophageal reflux disease without esophagitis

== ENCOUNTER 2020-05-22 19:56 | Observation (INO) | payer MEDICAID ==
[~2020-05-22] VITALS: Ht 180.3 cm; Wt 115.9 kg
--- NOTE | ~2020-05-22 | CN ---
PATIENT NAME:LORNA HOLMAN MEDICAL RECORD: [id number] : 65 LOCATION:[facility]E07- ADMIT DATE: 05/22/20 ACCOUNT: [id number] CONSULTING PHYSICIAN: MADHURI LEYVA MD REFERRING PHYSICIAN: ANA BURROUGHS MD DATE OF CONSULTATION: 05/23/2020 HISTORY OF PRESENT ILLNESS: A 55-year-old gentleman with a known history of coronary artery disease, status post coronary artery bypass grafting, most recently had intervention of the circumflex to the vein graft, seen with chest pain, fairly rapid progression of symptomology with noticed some dyspnea on exertion, chest tightness, pressure radiating to left arm and jaw. We are asked to see him concerning his cardiovascular status. PAST MEDICAL HISTORY: Otherwise includes; 1. History of coronary artery disease as described above. 2. Hypertension. 3. Hyperlipidemia. 4. Hypothyroidism, on replacement. ALLERGIES: None known. MEDICATIONS: Include Plavix 75 every day, atorvastatin 40 every day, Ranexa a gram b.i.d., isosorbide 120 mg every day, Hytrin 2 mg p.o. every day, lisinopril 10 mg p.o. every day, aspirin 81 every day, Lexapro 10 every day, trazodone 50 at bedtime, aspirin 81 every day, Synthroid 137 mcg every day. SOCIAL HISTORY: Nonsmoker, nondrinker. He is able to care of all his ADLs. REVIEW OF SYSTEMS: The patient reports easy bruising but reports no swollen glands. The patient reports no fever, no night sweats, no significant weight gain, no significant weight loss. No significant exercise tolerance. The patient reports no dry eyes, no irritation, no vision change. Patient reports no difficulty hearing and no ear pain. Patient reports no frequent nose bleeds or nose and sinus problems. Patient reports on arm pain on exertion. No shortness of breath while lying down. No history of heart murmur. Patient reports no cough, no wheezing or coughing up blood. Patient reports no abdominal pain, no vomiting. Normal appetite. No diarrhea and not vomiting blood. No nausea and no constipation. Patient reports no incontinence. No difficulty urinating. No hematuria. No increased frequency. Patient reports no muscle aches. No weakness, no arthralgias, no back pain. No swelling of the extremities. Patient reports no abnormal mole, no jaundice, no rashes. Reports no loss of consciousness. No weakness and no numbness. No seizures, dizziness, or headaches. The patient reports no depression, no sleep disturbance, feeling safe in a relationship and no alcohol abuse. Patient reports on fatigue. Reports no runny nose or sinus pressure. No itching, no hives, and no frequent sneezing. PHYSICAL EXAMINATION: GENERAL: Pleasant, no acute distress, appears stated age. VITAL SIGNS: Blood pressure 137/84, pulse 58 and regular. HEENT: Normocephalic, atraumatic. NECK: No JVD or bruit. HEART: Regular. A II/ systolic ejection murmur. LUNGS: Good air excursion. CONSULT REPORT [id number] LORNA HOLMAN ABDOMEN: Soft, nontender. EXTREMITIES: Pulses 2+. There is no edema. DIAGNOSTIC DATA: EKG shows nonspecific ST-T changes inferiorly. IMPRESSION: Acute coronary syndrome. PLAN: For angiography, intervention based on the above. TRANSINT:[id number] Voice Confirmation ID: [id number] DOCUMENT ID: [id number] MADHURI LEYVA MD CC: [id number] DICTATION DATE: 05/23/20 1237 SERVICE CAPTAIN: 05/23/[address] [facility] [address] [place] [address]
--- NOTE | ~2020-05-22 | HEMODYNAMI ---
PATIENT:LORNA HOLMAN MEDICAL RECORD: [id number] : 65 LOCATION[facility]# [id number] ADMISSION DATE: 05/22/20 Generatedon:05/23/202016:28 Patient name: LORNA HOLMAN Patient #: [id number] SSN: [id number] : 1965 Date of study: 05/23/2020 Page: Of Hemodynamic Procedure Report Patient Data Patient Demographics Procedure consent was obtained First Name: LORNA Gender: Male Last Name: RIVER : 1965 Middle Initial: MEAGAN Age: 55 year(s) Patient #: [id number] Race: SSN: [id number] Additional ID: [id number] Contact details [address]: [address] [place] [address] State: [place] City: [place] Zip code: [address] Past Medical History Allergies: No known allergies Admission Admission Data Admission Date: 05/22/2020 Admission Time: 23:02 Arrival Date: 05/22/2020 Arrival Time: 23:02 Admit Source: Emergency Insurance Payor: Medicaid department [facility] #: [id number] Room #: D.E07 Height (in.): 70.87 BSA: 2.33 (m2) Height (cm.): 180 BMI: 35.49 (kg/m2) Weight (lbs.): 253.53 Weight (kg.): 115 Lab Results Lab Result Date: 05/23/2020 Lab Result Time: 0:00 Biochemistry Name Units Result Min Max BUN mg/dl 18 --(---*)-- 7 18 CK-MB ng/ml 2.4 --(--*-)-- 0 3.6 Creatinine mg/dl 1.9 --(----)-* 0.6 1.3 eGFR ml/min 39 *-(----)-- 90 120 NONAFRICAN Troponin l ng/ml 0.017 --(-*--)-- 0 0.06 CBC Name Units Result Min Max Hematocrit % 41.1 -*(----)-- 42 54 Hemoglobin g/dl 14 --(*---)-- 13.5 17.5 Procedure Procedure Types Cath Procedure Diagnostic Procedure LHC LHC w/Coronaries w/Grafts Sedation Charges Moderate Sedation up to 30 minutes Procedure Description Procedure Date Procedure Date: 05/23/2020 Procedure Start Time: 16:00 Procedure End Time: 16:26 Procedure Staff Name Function Girma Gonzalez MD Performing Physician Tracy Casillas RT Monitor Gunjan Maldonado RT Scrub Salvador Oliva RN Nurse Procedure Data Cath Procedure Fluoroscopy Diagnostic fluoroscopy Total fluoroscopy Time: 3.9 time: 3.9 min min Diagnostic fluoroscopy Total fluoroscopy dose: dose: 1406 mGy 1406 mGy Contrast Material Contrast Material Type Amount (ml) Isovue 300 81 Entry Location Entry Primary Successful Side Size Upsize Upsize Entry Closure Succes sful Closure Location (Fr) 1 (Fr) 2 (Fr) Remarks Device Remarks Femoral Right 5 Fr Exoseal artery Estimated blood loss: 5 ml Diagnostic catheters Device Type Used For End Catheter Placement MULTIPACK JL 4.0 5Fr Left Coronary catheter Angiography MULTIPACK 3DRC 5Fr Right Coronary catheter Angiography MULTIPACK Pigtail 5 Fr LV Angiography catheter Procedure Complications No complications Procedure Medications Medication Administration Route Dosage Oxygen etCO2 Nasal cannula 2 l/min Lidocaine 2% added to field 20 Heparin Flush Bag added to field 2 bags (1000units/500ml NS) 0.9% NaCl 100 ml/hr Versed I.V. 2 mg Fentanyl I.V. 100 mcg Benadryl I.V. 50 mg Versed I.V. 1 mg Fentanyl I.V. 50 mcg Versed I.V. 1 mg Fentanyl I.V. 50 mcg Hemodynamics Rest BSA: 2.33 (m2) HGB: 14 (g/dl) O2 Consumption: Estimated: 269.33 (ml/min) O2 Cons umption indexed: Estimated:115.59 (ml/min/m) Heart Rate: 62 (bpm) Pressure Samples Time Site Value (mmHg) Purpose Heart Use Rate(bpm) 16:08 LV 113/19,18 Snapshot 66 Snapshots Pre Cath Intra NCS Post Cath Vital Signs Time Heart Resp SPO2 etCO2 NIBP (mmHg) Rhythm Pain Sedation Rate (ipm) (%) (mmHg) Status Level (bpm) 15:37:45 63 17 99 0 154/94(128) NSR 0 (11) 10(A) , No pain 15:41:02 57 19 99 32.9 145/92(115) NSR 0 (11) 10(A) , No pain 15:45:20 61 16 100 7.4 133/88(107) NSR 0 (11) 10(A) , No pain 15:49:36 58 16 100 0 147/102(135) NSR 0 (11) 10(A) , No pain 15:53:52 58 14 99 0 148/95(113) NSR 0 (11) 10(A) , No pain 15:58:08 61 15 100 41.9 147/97(128) NSR 0 (11) 9(A) , No pain 16:02:32 64 15 98 23.1 138/90(115) NSR 0 (11) 9(A) , No pain 16:06:48 65 13 98 27.6 134/90(111) NSR 0 (11) 9(A) , No pain 16:11:06 64 16 98 28.4 132/89(111) NSR 0 (11) 10(A) , No pain 16:15:53 63 15 98 0 136/91(106) NSR 0 (11) 9(A) , No pain Medications Time Medication Route Dose Verified Delivered Reason Notes Eff ectiveness by by 15:40:30 Benadryl I.V. 50 mg Girma Wellsie used for [facility] Jeison Oliva fishing rod trimmer 15:42:41 Oxygen etCO2 2 Girma Buffie used for Nasal l/min [facility] Jeison Oliva fishing rod trimmer cannula 15:42:48 Lidocaine 2% added 20ml Girma Buffie for local to vial LisaJeison Oliva RN anesthetic field CHANEY 15:42:54 Heparin Flush added 2 Girma Buffie used for Bag to bags [facility] Jeison Oliva fishing rod trimmer (1000units/500ml field CHANEY NS) 15:43:38 0.9% NaCl 100 Girma Wellsie Per ml/hr St Jeison Oliva RN physician 15:43:58 Versed I.V. 2 mg Girma Wellsie for St Jeison Oliva RN sedation 15:44:03 Fentanyl I.V. 100 Girma Buffie for mcg [facility] Jeison Oliva RN sedation 15:50:38 Versed I.V. 1 mg [address] for [facility] Jeison Oliva RN sedation 15:50:42 Fentanyl I.V. 50 Girma Franco for connie Carlton RN sedation 15:57:25 Versed I.V. 1 [address] Franco for [facility] Jeison Oliva RN sedation 15:57:28 Fentanyl I.V. 50 Girma Franco for connie Carlton RN sedation Procedure Log Time Note 15::08 Informed consent obtained and on chart 15:07:24 Diagnostic Cath Status : Emergency 15:08:08 Admit Source: Emergency department 15:08:11 ACC Patient presents with Stable Angina CCS Anginal Class 2--Slight limitation of ordinary activity. 15:08:14 Procedure Status Emergent Heart Cath (AMI). 15:08:17 Time tracking: Regular hours (M-F 7:00 - 5:00) 15:08:22 Plan of Care:Hemodynamics will remain stable., Cardiac rhythm will remain stable., Comfort level will be maintained., Respiratory function will remain adequate., Patient/ family verbilizes understanding of procedure., Procedure tolerated without complication., Recovers from procedure without complications.. 15:09:11 Lab Result : Creatinine 1.9 mg/dl 15:09:11 Lab Result : BUN 18 mg/dl 15:09:11 Lab Result : Troponin l 0.017 ng/ml 15:09:11 Lab Result : CK-MB 2.4 ng/ml 15:09:11 Lab Result : eGFR NONAFRICAN 39 ml/min 15:09:11 Lab Result : Hemoglobin 14 g/dl 15:09:11 Lab Result : Hematocrit 41.1 % 15::18 Lab results completed and on chart. 15:10:38 Alarms reviewed by R. N. 15:10:39 Sharps counted by scrub and verified by R.N. 15:16:54 Salvador Oliva RN sent for patient. Start room use. 15:21:06 Correct patient and procedure confirmed by team. 15:23:40 Arrival Date: 05/22/2020 11:02:00 PM 15:24:01 Insurance Payor : Medicaid 15:24:36 Patient Height : 70.87 inches 15:24:39 Patient Weight : 253.53 lbs 15:33:00 Patient received from ED to CCL 1 Alert and oriented. Tansferred to table in Supine position. 15:33:01 Warm blankets applied, and tyron hugger turned on for patient comfort. 15:33:01 ECG and BP/O2 sat monitors applied to patient. 15:33:02 Vital chart was started 15:39:59 Baseline sample Acquired. 15:40:02 Rhythm: sinus rhythm 15:40:04 Full Disclosure recording started 15:40:08 H&P Date Dictated: 05/23/2020 New H&P dictated by physician.. 15:40:10 Pre-procedure instructions explained to patient. 15:40:10 Pre-op teaching completed and patient verbalized understanding. 15:40:14 Family unavailable. 15:40:15 Patient NPO since Midnight. 15:40:19 Is the patient allergic to Iodine/contrast media? No. 15:40:20 Was the patient premedicated? Yes 15:40:21 Is patient on blood thinner?Yes 15:40:23 ACC The patient was administered the following blood thiners within the last 24 hours: ACCPlavix 15:40:25 Patient diabetic? No. 15:40:29 Previous problem with sedation/anesthesia? No ? 15:40:30 Benadryl 50 mg I.V. was administered by Salvador Oliva RN; used for procedure; Verbal order read back and verified. 15:40:30 Snore? Yes 15:40:31 Sleep apnea? Yes 15:40:32 Deviated septum? No 15:40:33 Opens mouth fully? Yes 15:40:34 Sticks out tongue? Yes 15:40:45 Airway obstruction? No ? 15:40:48 Dentures? No ? 15:40:51 Pre procedure: right dorsailis pedis pulse 2+ Normal; easily identifiable; not easily obliterated 15:40:53 Pre procedure: left dorsailis pedis pulse 2+ Normal; easily identifiable; not easily obliterated 15:41:01 IV patent on arrival in right forearm with 0.9% NaCl at [facility]. 15:41:06 Right groin area was prepped with chlora-prep and draped in sterile fashion 15:42:41 Oxygen 2 l/min etCO2 Nasal cannula was administered by Salvador Oliva RN; used for procedure; Verbal order read back and verified. 15:42:48 Lidocaine 2% 20ml vial added to field was administered by Salvador Oliva RN; for local anesthetic; Verbal order read back and verified. 15:42:54 Heparin Flush Bag (1000units/500ml NS) 2 bags added to field was administered by Salvador Oliva RN; used for procedure; Verbal order read back and verified. 15:42:59 Physician arrived 15:43:00 --------ALL STOP TIME OUT------ 15:43:00 Final Timeout: patient, procedure, and site verified with staff and physician. All members of the team are in agreement. 15:43:02 Right groin site verified by team. 15:43:05 Fire Safety Assessment: A--An alcohol-based skin anteseptic being used preoperatively., C--Open oxygen or nitrous oxide is being used., D--An ESU, laser, or fiber-optic light is being used. 15:43:09 Physical assessment completed. ASA score P 2 - A patient with mild systemic disease as per Girma Gonzalez MD. 15:43:12 3b) 30-44 Moderately reduced kidney function. 15:43:15 Maximum allowable contrast dose (3.7 X eGFR X 0.75)97 ml. 15:43:20 Sedation plan: IV Moderate Sedation Medication:Versed, Fentanyl 15:43:38 0.9% NaCl 100 ml/hr was administered by Salvador Oliva RN; Per physician; Verbal order read back and verified. 15:43:58 Versed 2 mg I.V. was administered by Salvador Oliva RN; for sedation; Verbal order read back and verified. 15:44:03 Fentanyl 100 mcg I.V. was administered by Salvador Oliva RN; for sedation; Verbal order read back and verified. 15:50:38 Versed 1 mg I.V. was administered by Salvador Oliva RN; for sedation; Verbal order read back and verified. 15:50:42 Fentanyl 50 mcg I.V. was administered by Salvador Oliva RN; for sedation; Verbal order read back and verified. 15:55:29 Baseline sample Acquired. 15:55:35 Use device set Femoral Dx 15:55:36 ACIST Syringe (27913) opened to sterile field. 15:55:37 Bag Decanter () opened to sterile field. 15:55:37 Medline Cath Pack ([id number]) opened to sterile field. 15:55:38 ACIST Hand Control (51380) opened to sterile field. 15:55:39 ACIST Manifold (82347) opened to sterile field. 15:55:39 DIAGNOSTIC Multipack 5Fr catheter set (SO9333) opened to sterile field. 15:55:40 Tegaderm 4 x 4 (1626W) opened to sterile field. 15:55:41 SHEATH 5FR [place] (HDI553) opened to sterile field. 15:55:41 EMERALD Guide Wire (819-757) opened to sterile field. 15:57:25 Versed 1 mg I.V. was administered by Salvador Oliva RN; for sedation; Verbal order read back and verified. 15:57:28 Fentanyl 50 mcg I.V. was administered by Salvador Oliva RN; for sedation; Verbal order read back and verified. 16:00:15 Procedure started. 16:00:18 Local anesthetic to right femoral artery with Lidocaine 2% by Girma Gonzalez MD.INITIAL ACCESS ONLY 16:00:28 A 5 Fr sheath was inserted into the Right Femoral artery 16:00:33 A MULTIPACK JL 4.0 5Fr catheter was advanced over the wire and used for Left Coronary Angiography. 16:00:42 LCA angiography performed. 16:00:44 Injector settings: Ml/sec: 3, Volume: 6, 16:01:12 Catheter removed. 16:01:16 A MULTIPACK 3DRC 5Fr catheter was advanced over the wire and used for Right Coronary Angiography. 16:01:53 RCA angiography performed. 16:02:05 Injector settings: Ml/sec: 3, Volume: 6, 16:02:12 SVG to Circ angiography performed. 16:05:36 GLIDE WIRE ANGLE 260cm ([id number]) opened to sterile field. 16:06:19 glide wire used to help gain access to bueno 16:07:06 BUENO to LAD angiography performed. 16:07:14 Injector settings: Ml/sec: 3, Volume: 6, 16:07:20 Catheter removed. 16:07:26 A MULTIPACK Pigtail 5 Fr catheter was advanced over the wire and used for LV Angiography. 16:08:44 LV hemodynamics recorded. 16:08:45 LV gram done using GUNTER 16:08:47 Injector settings: Ml/sec: 5, Volume: 15, 16:09:19 Aortic Root visualized 16:10:43 Injector settings: Ml/sec: 10, Volume: 20, 16:10:46 Catheter removed. 16:10:55 EXOSEAL 5Fr (EX500) opened to sterile field. 16:11:13 Sheath removed intact; hemostasis achieved with Exoseal to the Right Femoral artery. 16:11:14 Procedure ended.(Physican Out) 16:11:56 Fluoroscopy time 03.90 minutes. 16:12:00 Flurop Dose total: 1406 16:12:00 Fluoroscopy dose: 1406 mGy 16:12:05 Dose Area Product 30302 mGy/cm. 16:12:09 Contrast amount:Isovue 300 81ml. 16:12:51 Maximum allowable dose exceeded? No. 16:14:16 Sharps counted by scrub and verified by R.N. 16:14:18 Insertion/operative site no bleeding no hematoma. 16:14:30 Post-op/insertion site Right Femoral artery dressed using a 4 x 4 and Tegaderm. 16:14:31 Post Procedure Pulses reassessed and unchanged 16:15:08 Post procedure rhythm: unchanged. 16:15:10 Estimated blood loss: 5 ml 16:15:12 Post procedure instruction explained to patient.Patient verbalizes understanding. 16:15:12 Patient needs reinforcement of post procedure teaching. 16:15:19 Procedure type changed to Cath procedure, Diagnostic procedure, LHC, C w/Coronaries w/Grafts, Sedation Charges, Moderate Sedation up to 30 minutes 16:16:01 Procedure and supply charges have been captured, reviewed, submitted and are correct. 16:16:05 Procedure Complication : No complications 16:16:08 Vital chart was stopped 16:16:21 [facility] Findings: mild to moderate CAD (<70%) 16:16:22 Operative report dictated upon procedure completion. 16:16:29 See physician's report for complete and final results. 16:26:08 Report given to Pre/Post Procedure Room. 16:26:11 Patient transfered to Pre/Post Procedure Room with Stretcher. 16:26:13 Procedure ended. 16:26:13 Full Disclosure recording stopped 16:26:17 End room use (Document Last) 16:26:45 End room use (Document Last) 16:27:01 End room use (Document Last) Device Usage Item Name Manufacture Quantity Catalog Hospital Part Current Minimal L ot# / Number Charge Number Stock Stock Serial# Code ACIST Acist 1 80528 163750 321374 811423 20 Syringe Medical (53209) Systems Inc Bag Microtek 1 2001S 856702 28375 277122 5 Decanter Medical Inc. (2001S) Medline Medline 1 [id number] 013591 11248 057790 5 Cath Pack ([id number]) ACIST Hand Acist 1 25902 559253 176940 173644 5 Control Medical (13277) Systems Inc ACIST Acist 1 28579 905690 880600 171586 5 Manifold Medical (15194) Systems Inc DIAGNOSTIC Cardinal 1 QE1983 047820 50833 212769 30 Multipack Health 5Fr catheter set (OR2764) Tegaderm 4 3M 1 1626W 156816 711230 962683 5 x 4 (1626W) SHEATH 5FR Terumo 1 YHQ952 591113 657963 247719 5 [place] (MEZ654) EMERALD Cardinal 1 502-455 307832 802593 744310 5 Guide Wire Health (502-455) MULTIPACK Cardinal 1 631398 5 JL 4.0 5Fr Health catheter MULTIPACK Cardinal 1 850602 5 3DRC 5Fr Health catheter GLIDE WIRE Terumo 1 [id number] 290723 743284 906866 5 ANGLE 260cm (FD3695) MULTIPACK Cardinal 1 788615 5 Pigtail 5 Health Fr catheter EXOSEAL 5Fr Cardinal 1 EX500 670365 784957 932292 10 (EX500) Health Signature Audit [place] Stage Time Signature Unsigned Intra-Procedure 05/23/2020 Tracy Casillas 4:26:45 PM RT(R) Intra-Procedure 05/23/2020 Salvador Oliva RN 4:27:01 PM Intra-Procedure 05/23/2020 Girma Pearce 4:28:53 PM Jeison [place] [address] [facility] [place] [address]
--- NOTE | ~2020-05-22 | OP ---
PATIENT NAME: LORNA HOLMAN MEDICAL RECORD: [id number] :65 LOCATION:[facility]- ADMISSION DATE:05/22/20 SURGEON: MADHURI LEYVA MD DATE OF OPERATION: 05/23/2020 PROCEDURE: Left heart catheterization, selective coronary angiography, right femoral artery approach. CATHETERS: A 5-Yakut sheath, 5/4 left and right Narinder, 5/4 pig. The procedure was well tolerated. The patient returned to the vila, sheath removed. ExoSeal device placed. FINDINGS: Left ventriculography in 30-degree GUNTER view: Normal wall motion and normal systolic function. CORONARY ANATOMY: LEFT MAIN: Left main is free of disease. LAD: Fills for a short period of time and is totally occluded. CIRCUMFLEX: Fills for a short period of time, totally occluded. RIGHT CORONARY ARTERY: Totally occluded. BYPASS GRAFTS: 1. BUENO to LAD is widely patent and fills the large diagonal in a retrograde fashion nicely as well. 2. Circumflex: The circumflex graft has a previously placed stent. Graft itself is widely patent with some ghost filling to the distal right. IMPRESSION: Probably unstable angina secondary to collateral insufficiency. Continue medical management. TRANSINT:[id number] Voice Confirmation ID: [id number] DOCUMENT ID: [id number] MADHURI LEYVA MD CC: [id number] DICTATION DATE: 05/23/20 1635 TRANSFUSION NURSE: 05/23/20 2344 DIS IN 05/23/20 [facility] [address] [place] [address]
[~2020-05-22 19:56] MED LIST changes: +ADALAT CC90 MG PO
[2020-05-22 20:01] VITALS: Ht 180.3 cm; Wt 115.9 kg
--- NOTE | 2020-05-22 20:31 | NUR ---
PATIENT IN WITH MID CHEST PAIN AND SOB THAT STARTED THIS AFTERNOON, AT FIRST HE STATES WAS INTERMITTENT AND BECAOME MORE CONSTANT. HAD A CARDIAC STENT PLACED 04/24 AND CABG 10 YEARS AGO. PATIENT IS A+O X3.
[2020-05-22] MEDS ORDERED: TERAZOSIN HCL2 MG PO (20:34)
[2020-05-22] MEDS ORDERED: LEXAPRO10 MG PO (20:35)
[2020-05-22] MEDS ORDERED: ZESTRIL10 MG PO (20:35)
[2020-05-22] MEDS ORDERED: BAYER CHEWABLE81 MG PO (20:35)
[2020-05-22] MEDS ORDERED: TRAZODONE HCL50 MG PO (20:35)
[2020-05-22 20:39] LABS: BASOPHILS 0.5 % (0-2); EOSINOPHILS 5.4 % (0-7); HEMATOCRIT 41.8 % (42.0-54.0); HEMOGLOBIN 14.4 g/dL (13.5-17.5); IMMATURE GRANULOCYTES 0.2 % (0-5); LYMPHOCYTES 31.8 % (15-50); MCH 31.7 pg (26.0-34.0); MCHC 34.4 g/dL (31.0-37.0); MCV 92.1 fL (80.0-100.0); MONOCYTES 11.4 % (2-11); NEUTROPHILS 50.7 % (40-80); PLATELET COUNT 131 10x3/uL (130-400); RBC 4.54 10x6/uL (4.20-6.10); RDW 13.1 % (11.5-14.5); WBC 4.3 10x3/uL (4.8-10.8)
[2020-05-22 20:47] VITALS: BP 166/88
[2020-05-22 20:47] LABS: APTT 25.4 SECONDS (22.8-39.4); INR 1.16 (0.85-1.17); PROTIME 14.7 SECONDS (11.6-15.0)
[2020-05-22 20:48] LABS: D-DIMER-QUANTITATIVE 0.48 ug/mLFEU (0.20-0.54)
[2020-05-22 20:52] LABS: CALC OSMOLALITY 279 mosm/kg (275-300); CALCIUM 8.3 mg/dL (8.5-10.1); CARBON DIOXIDE 23.5 mmol/L (21.0-32.0); CHLORIDE - SERUM 107 mmol/L (98-107); CREATININE - SERUM 2.1 mg/dL (0.6-1.3); GLUCOSE 92 mg/dL (74-106); POTASSIUM - SERUM 3.4 mmol/L (3.5-5.1); SODIUM 139 mmol/L (136-145); UREA NITROGEN 19 mg/dL (7-18); eGFR NON AFRICAN AMERICAN 35 mL/min (90-120)
[2020-05-22 21:05] LABS: ALBUMIN 3.9 g/dL (3.4-5.0); ALKALINE PHOSPHATASE 132 U/L (30-120); ALT (SGPT) 33 U/L (10-68); BILIRUBIN - TOTAL 0.57 mg/dL (0.2-1.3); C-REACTIVE PROTEIN 0.2 mg/dL (0.0-0.9); CKMB 2.8 U/L (0.0-3.6); CREATINE KINASE 125 UL (21-232); LIPASE 404 U/L (73-393); MAGNESIUM - SERUM 1.9 mg/dL (1.8-2.4); PRO BNP 163 pg/mL (0-125); PROTEIN - SERUM 6.7 g/dL (6.4-8.2); THYROID STIMULATING HORMONE 3.61 uIU/mL (0.36-3.74); TROPONIN-I 0.016 ng/mL (0.000-0.060)
[2020-05-22 22:26] VITALS: BP 147/83
[2020-05-23] VITALS (8 sets, daily range): BP systolic 134–161; BP diastolic 66–94
--- NOTE | 2020-05-23 00:28 | NUR ---
PATIENT RESTING QUIETLY AT THIS TIME, CALL LIGHT WITHIN REACH, DENIES PAIN AT THIS TIME. COVID SPECIMEN OBTAINED AND SENT TO THE LAB.
--- NOTE | 2020-05-23 01:57 | NUR ---
PT RESTING ON LEFT SIDE LYING SIDE. BLANKET GIVEN TO PT PER HIS REQUEST. CALL LIGHT WITHIN REACH. DENIES CURRENT NEEDS. WILL CONTINUE TO MONITOR.
[2020-05-23 02:12] LABS: BILIRUBIN NEGATIVE (NEGATIVE); KETONE NEGATIVE (NEGATIVE); NITRITE NEGATIVE (NEGATIVE); UROBILINOGEN NORMAL mg/dL (< 2)
[2020-05-23 05:33] LABS: BASOPHILS 0.5 % (0-2); EOSINOPHILS 5.2 % (0-7); HEMATOCRIT 41.1 % (42.0-54.0); IMMATURE GRANULOCYTES 0.2 % (0-5); LYMPHOCYTES 28.8 % (15-50); MCH 31.1 pg (26.0-34.0); MCHC 34.1 g/dL (31.0-37.0); MCV 91.3 fL (80.0-100.0); MEAN PLATELET VOLUME 9.4 fL (7.4-10.4); MONOCYTES 9.7 % (2-11); NEUTROPHILS 55.6 % (40-80); PLATELET COUNT 108 10x3/uL (130-400); RDW 13.1 % (11.5-14.5)
[2020-05-23 06:09] LABS: CALC OSMOLALITY 284 mosm/kg (275-300); CALCIUM 7.9 mg/dL (8.5-10.1); CARBON DIOXIDE 25.4 mmol/L (21.0-32.0); CHLORIDE - SERUM 109 mmol/L (98-107); CKMB 2.3 U/L (0.0-3.6); CREATINE KINASE 100 UL (21-232); CREATININE - SERUM 1.9 mg/dL (0.6-1.3); GLUCOSE 103 mg/dL (74-106); MAGNESIUM - SERUM 1.9 mg/dL (1.8-2.4); PHOSPHOROUS 3.8 mg/dL (2.5-4.9); POTASSIUM - SERUM 3.9 mmol/L (3.5-5.1); PRO BNP 188 pg/mL (0-125); SODIUM 142 mmol/L (136-145); TROPONIN-I 0.023 ng/mL (0.000-0.060); UREA NITROGEN 18 mg/dL (7-18); eGFR NON AFRICAN AMERICAN 39 mL/min (90-120)
[2020-05-23 10:16] LABS: LDL-HDL RATIO 2.5 ratio (1.5-3.5)
[2020-05-23 11:51] LABS: CKMB 2.4 U/L (0.0-3.6); CREATINE KINASE 101 UL (21-232)
[2020-05-23 11:53] LABS: TROPONIN-I < 0.017 ng/mL (0.000-0.060)
--- NOTE | 2020-05-23 16:40 | NUR ---
PT REC'D TO ROOM 3 VIA STRETCHER FROM AUTO TECH. MONITORS ESTAB. DAUGHTER AT BS. SEE PUBLIC HEALTH PROGRAM MANAGER, ALARMS ON AND C/L IN REACH.
--- NOTE | 2020-05-23 16:55 | NUR ---
R GROIN SITE SOFT, NO S/S BLEEDING OR HEMATOMA. PULSES PALP. VSS. PT DENIES PAIN OR NEEDS. ALARMS ON AND C/L IN REACH.
--- NOTE | 2020-05-23 17:25 | NUR ---
R GROIN SITE SOFT, NO S/S BLEEDING OR HEMATOMA. PULSES PALP. VSS. PT AWAKENS EASILY, DENIES PAIN OR NEEDS. C/L IN REACH.
--- NOTE | 2020-05-23 17:45 | NUR ---
R GROIN SOFT, NO S/S BLEEDING OR HEMATOMA. HOB ELEVATED, SANDWICH AND TEA PROVIDED. DAUGHTER AT BS. VSS. C/L IN REACH.
--- NOTE | 2020-05-23 17:55 | NUR ---
R GROIN SITE SOFT, C/D/I. PT ATE ALL OF SANDWICH. VSS. PIV D/C'D INTACT, DSG APPLIED. PT ALLOWED UP TO GET DRESSED AND GO TO BR INDEPENDENTLY.
--- NOTE | 2020-05-23 18:00 | NUR ---
ALL DISCHARGE INSTRUCTIONS REVIEWED WITH PT AND DAUGHTER, BOTH VERBALIZE UNDERSTANDING.
--- NOTE | 2020-05-23 18:05 | NUR ---
PT D/C'D TO PRIVATE VEHICLE WITH ALL PAPERWORK AND BELONGINGS.
== END 2020-05-23 18:05 | disposition home or self-care (01) ==
LOC: D.ER 19:56 → D.EDHOLD 23:02 → OBSVTIME 23:02 → D.EDHOLD 05-23 18:05
PROVIDERS: Family Medicine; Internal Medicine Interventional Cardiology; ADMIT Family Medicine; ATTEND Family Medicine
DX: N17.9 Acute kidney failure, unspecified (principal); I12.9 Hypertensive chronic kidney disease with stage 1 through stage 4 chronic kidney disease, or unspecified chronic kidney disease; N18.9 Chronic kidney disease, unspecified; R07.9 Chest pain, unspecified; Z95.1 Presence of aortocoronary bypass graft; E03.9 Hypothyroidism, unspecified; E78.5 Hyperlipidemia, unspecified; K21.9 Gastro-esophageal reflux disease without esophagitis; G47.00 Insomnia, unspecified; R06.02 Shortness of breath